=== PATIENT | female | born 1930 | race Caucasian/White ===

== ENCOUNTER 2017-03-11 09:17 | Inpatient (IN) | payer BC, MEDICARE ==
--- NOTE | 2017-03-11 09:53 | ED PDOC ---
Arrival/HPI - General Historian: Patient - History of Present Illness Time/Duration: Prior to Arrival Context: Home - General Chief Complaint: Dizziness/Lightheaded Time Seen by Provider: 03/11/17 09:25 - History of Present Illness Narrative History of Present Illness (Text): 03/11/17 09:48 This 87 yo female with pmh HTN, presents to this ED c/o dizziness, and decreased appetite x 4 days. Patient stated she tripped and fell down. Patient does not how she tripped. Patient denies pain at this time. Patient is connected with a NC, with pulse ox. 95%. Denies sob, cp, abdominal pain, n/v , fever, chills, head injury, diplopia, dysarthria, or abnormal gait. Patient lives alone in apartment. NAVID Bosch (Boone Yee) Past Medical History - Provider Review Nursing Documentation Reviewed: Yes - Reproductive Menopause: Yes - Cardiac Hx Cardiac Disorders: Yes Hx Hypertension: Yes - Pulmonary Hx Respiratory Disorders: No - Neurological Hx Neurological Disorder: No - HEENT Hx HEENT Disorder: Yes Other/Comment: ectropion - Renal Hx Renal Disorder: No - Endocrine/Metabolic Hx Endocrine Disorders: No Other/Comment: impaired fasting glucose - Hematological/Oncological Hx Blood Disorders: No - Integumentary Hx Dermatological Disorder: No - Musculoskeletal/Rheumatological Hx Musculoskeletal Disorders: No - Gastrointestinal Hx Gastrointestinal Disorders: No - Genitourinary/Gynecological Hx Genitourinary Disorders: No - Psychiatric Hx Psychophysiologic Disorder: No Hx Substance Use: No - Anesthesia Hx Anesthesia: No Family/Social History - Physician Review Nursing Documentation Reviewed: Yes Family/Social History: Other (non-contributory) Smoking Status: Never Smoked Hx Alcohol Use: No Hx Substance Use: No Allergies/Home Meds Allergies/Adverse Reactions: Allergies No Known Allergies Allergy (Verified 03/11/17 09:37) Home Medications: Home Meds Medication Instructions Recorded Confirmed Lisinopril/Hydrochlorothiazide 20 mg DAILY 03/11/17 03/11/17 [Lisinopril-Hctz 20-25 mg Tab] amLODIPine [Norvasc] 10 mg PO DAILY 03/11/17 03/11/17 Review of Systems - Review of Systems Constitutional: Normal. absent: Fatigue, Weight Change, Fevers Eyes: Normal ENT: Normal Respiratory: Normal. absent: SOB Cardiovascular: Normal. absent: Chest Pain, Palpitations Gastrointestinal: Appetite Changes. absent: Abdominal Pain, Nausea, Vomiting Genitourinary Female: Normal. absent: Dysuria, Frequency, Hematuria, Vaginal Bleeding, Vaginal Discharge Musculoskeletal: Normal. absent: Back Pain, Neck Pain Skin: Normal. absent: Rash, Pruritis Neurological: Dizziness. absent: Headache, Focal Weakness, Gait Changes, Speech Changes, Facial Droop, Disequilibrium, Seizure Endocrine: Normal Hemo/Lymphatic: Normal Psychiatric: Normal Physical Exam Temperature: Afebrile Blood Pressure: Normal Pulse: Regular Respiratory Rate: Normal Appearance: Positive for: Well-Appearing, Non-Toxic, Comfortable, Unkept Pain Distress: None Mental Status: Positive for: Alert and Oriented X 3 - Systems Exam Head: Present: Atraumatic, Normocephalic Pupils: Present: PERRL Extroacular Muscles: Present: EOMI Conjunctiva: Present: Other (ectropion b/l) Ears: Present: Normal, NORMAL TM, Normal Canal. No: Erythema, TM Bulging, Fluid , TM Perf Mouth: Present: Moist Mucous Membranes Pharnyx: Present: Normal. No: ERYTHEMA, EXUDATE, TONSILS ENLARGED Neck: Present: Normal Range of Motion, Trachea Midline. No: Meningeal Signs, MIDLINE TENDERNESS Respiratory/Chest: Present: Clear to Auscultation, Good Air Exchange, Respiratory Distress (mild). No: Accessory Muscle Use, Wheezes, Retracting, Rhonchi, Tachypneic Cardiovascular: Present: Regular Rate and Rhythm, Normal S1, S2. No: Murmurs Abdomen: Present: Normal Bowel Sounds. No: Tenderness, Distention, Peritoneal Signs, Rebound, Guarding Back: Present: Normal Inspection. No: CVA Tenderness Upper Extremity: Present: Normal Inspection. No: Cyanosis, Edema Lower Extremity: Present: Normal Inspection. No: Edema Neurological: Present: GCS=15, CN II-XII Intact, Speech Normal, Motor Func Grossly Intact, Normal Sensory Function, Normal Cerebellar Funct, Memory Normal Skin: Present: Warm, Dry, Normal Color. No: Rashes Psychiatric: Present: Alert, Oriented x 3, Normal Insight, Normal Concentration Vital Signs Temp Pulse Resp BP Pulse Ox 03/11/17 13:02 89 18 158/79 H 95 03/11/17 11:39 96 H 18 161/84 H 94 L 03/11/17 11:33 92 H 18 95 03/11/17 10:29 99.5 F 03/11/17 09:18 98 H 18 142/89 97 Medical Decision Making Re-evaluation Time: 11:35 Reassessment Condition: Re-examined, Improving,but remains with symptoms - Lab Interpretations I have reviewed the lab results: Yes Interpretation: Abnormal lab values - EKG Interpretation Interpreted by ED Physician: Yes (Sinus Rhythm with PAC @ 88 bpm. ) Type: 12 lead EKG Comparison: No previous EKG avail. ED Course and Treatment: 03/11/17 11:25 Code sepsis was called overhead 03/11/17 13:[address] Horne who is covering for Dr. Rose, regarding sepsis. He agrees with admission (Boone Yee) I was available for consultation during PA evaluation. The chart was reviewed by me, and I agree with disposition. The documented history was done by the physician topography technician. The documented physical exam was done by the physician topography technician. The documented procedures were done by the physician topography technician. (Seamus Mathew) - Lab Interpretations Lab Results: 03/11/17 11:06 03/11/17 11:06 Lab Results 03/11/17 13:55: pO2 39, VBG pH 7.32, VBG pCO2 52.0, VBG HCO3 26.8, VBG Total CO2 28.4 H, VBG O2 Sat (Calc) 73.9 H, VBG Base Excess -0.1 L, VBG Potassium 4.3 , Sodium 133.0, Chloride 98.0, Glucose 108 H, Lactate 2.5 H, FiO2 21.0, Venous Blood Potassium 4.3 03/11/17 11:06: Phosphorus 3.9, Magnesium 2.1 03/11/17 11:06: PT 11.0, INR 1.02, APTT 28.7 03/11/17 11:06: D-Dimer, Quantitative 4.80 H 03/11/17 11:06: Sodium 137, Chloride 95 L, Potassium 4.5, Carbon Dioxide 28, Anion Gap 19, BUN 21, Creatinine 0.9, Est GFR ( Amer) > 60, Est GFR (Non- Af Amer) 59, Random Glucose 112 H, Calcium 9.4, Total Bilirubin 0.9, AST 20, ALT 29, Alkaline Phosphatase 99, Lactate Dehydrogenase 773 H, Total Creatine Kinase 29 L, Troponin I 0.02, NT-Pro-B Natriuret Pep 443, Total Protein 6.8, Albumin 3.7, Globulin 3.0, Albumin/Globulin Ratio 1.2 03/11/17 11:06: pO2 29 L, VBG pH 7.34, VBG pCO2 54.0, VBG HCO3 29.1 H, VBG Total CO2 30.8 H, VBG O2 Sat (Calc) 59.3, VBG Base Excess 2.2 H, VBG Potassium 4.4, Sodium 133.0, Chloride 98.0, Glucose 120 H, Lactate 2.5 H, FiO2 21.0, Venous Blood Potassium 4.4 03/11/17 11:06: WBC 16.6 H, RBC 4.71, Hgb 13.2, Hct 40.3, MCV 85.6, MCH 28.0, MCHC 32.8, RDW 14.9 H, Plt Count 327, MPV 10.1, Gran % 61.8, Lymph % (Auto) 32.0 , [place] % (Auto) 6.0, Eos % (Auto) 0.1 L, Baso % (Auto) 0.1, Gran # 10.25 H, Lymph # 5.3 H, [place] # 1.0 H, Eos # 0.0, Baso # 0.02 03/11/17 10:42: Urine Color Yellow, Urine Appearance Clear, Urine pH 6.0, Ur Specific Kila 1.025, Urine Protein 30 H, Urine Glucose (UA) Negative, Urine Ketones 15 H, Urine Blood Moderate H, Urine Nitrate Negative, Urine Bilirubin Moderate H, Urine Urobilinogen 4.0 H, Ur Leukocyte Esterase Moderate H, Urine RBC 10 - 15, Urine WBC 5 - 10, Ur Epithelial Cells Many, Urine Bacteria Many, Hyaline Casts 2 - 5 - RAD Interpretation Narrative RAD Interpretations (Text): 03/11/17 11:37 Accession No. : [id number] Patient Name / ID : JULIANNE LUTHER / [id number] Exam Date : 03/11/2017 11:15:57 ( Approved ) Study Comment : Sex / Age : F / 87Y Creator : Edmundo Phillips MD Dictator : Edmundo Phillips MD Personal Care Aid : Aviation Electrical Technician : Edmundo Phillips MD Approver2 : Report Date : 03/11/2017 11:34:33 My Comment : PROCEDURE: CT HEAD WITHOUT CONTRAST. HISTORY: dizziness COMPARISON: None available. TECHNIQUE: Axial computed tomography images were obtained through the head/brain without intravenous contrast. Radiation dose: Total exam DLP = 790.51 mGy-cm. This CT exam was performed using one or more of the following dose reduction techniques: Automated exposure control, adjustment of the mA and/or kV according to patient size, and/or use of iterative reconstruction technique. FINDINGS: HEMORRHAGE: No acute parenchymal, subarachnoid nor extra-axial hemorrhage. BRAIN: Moderate to fairly significant diffuse/confluent chronic white matter ischemic changes are seen extending peripherally into the deep and subcortical white matter both cerebral hemispheres. 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 Note that the possibility of underlying acute infarct cannot be completely excluded. Clinical correlation recommended. VENTRICLES: No obstructive hydrocephalus. CALVARIUM: Unremarkable. PARANASAL SINUSES: Polypoid mucosal thickening both maxillary sinuses right greater than left. MASTOID AIR CELLS: Unremarkable as visualized. No inflammatory changes. OTHER FINDINGS: None. IMPRESSION: No acute intracranial hemorrhage. Moderate to significant chronic white matter and basal nuclei ischemic changes. Moderate volume loss. 03/11/17 13:57 Accession No. : [id number] Patient Name / ID : JULIANNE LUTHER / [id number] Exam Date : 03/11/2017 12:43:38 ( Approved ) Study Comment : Sex / Age : F / 87Y Creator : Rodríguez Bernal MD Dictator : Rodríguez Bernal MD Personal Care Aid : Aviation Electrical Technician : Rodríguez Bernal MD Approver2 : Report Date : 03/11/2017 13:21:51 My Comment : PROCEDURE: CT Chest with contrast (Pulmonary Angiogram) HISTORY: dyspnea / elevated Ddimer COMPARISON: None available. TECHNIQUE: Axial computed tomography images were obtained of the chest in the pulmonary arterial phase of enhancement. Coronal and sagittal reformatted images were created and reviewed. Intravenous contrast dose: Omnipaque 300, 150 cc Radiation dose: Total exam DLP = 571.65 mGy-cm. This CT exam was performed using one or more of the following dose reduction techniques: Automated exposure control, adjustment of the mA and/or kV according to patient size, and/or use of iterative reconstruction technique. FINDINGS: PULMONARY ARTERIES: No definite pulmonary embolus is appreciated in the primary and secondary branches with tertiary tree branches obscured by respiratory motion artifact and dilution of iodinated contrast material. AORTA: No acute findings. No thoracic aortic aneurysm. The main pulmonary appears normal caliber. LUNGS: Restrained motion degrades quality of the evaluation of the lungs however limited compression atelectasis is identified at the bilateral lower lobes at the dependent portion, right greater than left. No definitive pulmonary mass or nodule. The right hemidiaphragm is elevated. PLEURAL SPACES: There is a mild right pleural effusion with all minimal left pleural effusion identified. Nodular pleural thickening is suspicious for mass is in the right lower lobe pleura and possibly at the left side as well. There is a mild pericardial effusion. HEART: Cardiac size appears upper limits of normal. No definite pulmonary vascular derangement. LYMPH NODES: Gross mediastinal lymphadenopathy is appreciated. Confluent lymphadenopathy is appreciated at the upper anterior to middle mediastinum including masslike density comprising the space measuring 11.6 x 7.6 cm. This confluent metastatic or primary lesion to encases the distal superior vena cava and abuts the greater vessels. Moderate lymphadenopathy seen in the left pectoralis and axillary regions with mass is suspected in the left breast as well. BONES, CHEST WALL: Motion artifacts limit the evaluation. Multilevel thoracic spondylosis identified. 6.2 x 3 1 cm mass in the right 5th intercostal space medially. Moderate lymphadenopathy seen in the left pectoralis and axillary regions with masses suspected in the left breast as well. OTHER FINDINGS: Two hepatic cysts identified with a few of solitary lucency near the dome too small to characterize. IMPRESSION: 1. No definite pulmonary embolus identified. Restrained motion and dilution of iodinated contrast material related to large volume of distribution in this patient limit distal pulmonary artery branch evaluation. 2. Extensive mediastinal lymphadenopathy is identified as well as moderate lymphadenopathy at the left pectoralis and axillary regions. Masses are seen in the left breast as well. Further clinical correlation is advised. 3. Limited bilateral pleural effusions greater the right than left with pleural mass is suggested at the right lower lobe posteriorly and inferiorly as well as possible at the left pleural space. An anterior medial right chest wall masses seen measures 6.2 x 3.1 cm at the right 5th intercostal space 03/11/17 13:57 Accession No. : [id number] Patient Name / ID : JULIANNE LUTHER / [id number] Exam Date : 03/11/2017 10:04:15 ( Approved ) Study Comment : Sex / Age : F / 87Y Creator : Rodríguez Bernal MD Dictator : Rodríguez Bernal MD Personal Care Aid : Aviation Electrical Technician : Rodríguez Bernal MD Approver2 : Report Date : 03/11/2017 13:32:46 My Comment : HISTORY: dizziness COMPARISON: No prior. FINDINGS: LUNGS: Limited patchy density or bronchovascular overlap seen at the inferior right lung zone. Mediastinal widening is seen toward the right of the ascending thoracic aorta/aortic arch reflecting probable lymphadenopathy. Please see separate chest CT also performed 03/11/2017. PLEURA: Small pleural effusion is suggested. Right hemidiaphragm is elevated with no visible right pleural effusion appreciable this time. Right pleural effusion is demonstrated separate chest CT noted above. No pneumothorax bilaterally. CARDIOVASCULAR: Prominent cardiac silhouette is noted without pulmonary vascular derangement. OSSEOUS STRUCTURES: No significant abnormalities. VISUALIZED UPPER ABDOMEN: Normal. OTHER FINDINGS: None. IMPRESSION: 1. Prominent upper mediastinum with soft tissues suggested toward the right of the aortic arch suspicious for lymphadenopathy or other lesions. Please see separate chest CT 03/11/2017. 2. Limited patchy infiltrate question at the right base. 3. Small pleural effusion. Mild right pleural effusion seen in chest CT 2016 is not well visualized this exam however right emy-diaphragm appears elevated. (Boone Yee) Radiology Orders: 03/11/17 09:58 CHEST PORTABLE [RAD] Stat 03/11/17 10:00 HEAD W/O CONTRAST [CT] Stat 03/11/17 11:42 ANGIO CHEST PE PROTOCOL [CT] Stat - Medication Orders Current Medication Orders: Albuterol/Ipratropium (Duoneb 3 Mg/0.5 Mg (3 Ml) Ud) 3 ml IH Q4H PRN PRN Reason: Wheezing Discontinued Medications Sodium Chloride (Sodium Chloride 0.9%) 500 mls @ 999 mls/hr IV .Q31M STA Stop: 03/11/17 10:32 Last Admin: 03/11/17 10:35 Dose: 999 mls/hr eMAR Start Stop Document 03/11/17 10:35 SF (Rec: 03/11/17 10:36 SF [email or web address] Intravenous Solution Start Date 03/11/17 Start Time 10:36 End Date 03/11/17 End time 11:06 Total Infusion Time 30 Ceftriaxone Sodium (Rocephin 1 Gram Ivpb) 1 gm in 100 mls @ 200 mls/hr IVPB STAT STA PRN Reason: Protocol Stop: 03/11/17 11:57 Last Admin: 03/11/17 11:42 Dose: 200 mls/hr eMAR Start Stop Document 03/11/17 11:42 SF (Rec: 03/11/17 11:42 SF [email or web address] Intravenous Solution Start Date 03/11/17 Start Time 11:42 End Date 03/11/17 End time 12:12 Total Infusion Time 30 Sodium Chloride 1,900 ml/ IV (SUPPLIES) 1,900 mls @ 4,898.82 mls/hr IV ONCE ONE PRN Reason: 60 ML/KG/HR Stop: 03/11/17 11:32 Last Admin: 03/11/17 11:42 Dose: 4,898.82 mls/hr eMAR Start Stop Document 03/11/17 11:42 SF (Rec: 03/11/17 11:42 SF [email or web address] Intravenous Solution Start Date 03/11/17 Start Time 11:42 Azithromycin (Zithromax 500mg In Ns) 500 mg in 250 mls @ 167 mls/hr IVPB STAT STA PRN Reason: Protocol Stop: 03/11/17 13:54 Last Admin: 03/11/17 13:06 Dose: 167 mls/hr eMAR Start Stop Document 03/11/17 13:06 NH (Rec: 03/11/17 13:07 NH [id number]) Intravenous Solution Start Date 03/11/17 Start Time 13:07 End Date 03/11/17 End time 14:37 Total Infusion Time 90 Iohexol (Omnipaque 350 150 Ml) Confirm Administered Dose 150 ml .ROUTE .STK-MED ONE Stop: 03/11/17 11:50 Disposition/Present on Arrival - Present on Arrival Any Indicators Present on Arrival: No History of DVT/PE: No History of Uncontrolled Diabetes: No Urinary Catheter: No History of Decub. Ulcer: No History Surgical Site Infection Following: None - Disposition Have Diagnosis and Disposition been Completed?: Yes Disposition Time: 14:00 Patient Plan: Admission - Disposition Diagnosis: Mediastinal mass, Sepsis, Pneumonia Disposition: HOSPITALIZED Condition: GOOD
[2017-03-11] MEDS ORDERED: Sodium Chloride 0.9% 500 ML IV STA (10:02)
[2017-03-11 10:55] LABS: URINE BILIRUBIN MODERATE (NEGATIVE); URINE BLOOD MODERATE (NEGATIVE); URINE GLUCOSE (UA) NEGATIVE (NEGATIVE); URINE KETONE 15 mg/dL (NEGATIVE); URINE LEUKOCYTE ESTERASE MODERATE Leu/uL (NEGATIVE); URINE PROTEIN 30 mg/dL (<30 mg/dL)
[2017-03-11 10:56] LABS: URINE APPEARANCE CLEAR (CLEAR); URINE COLOR YELLOW (YELLOW)
[2017-03-11 11:01] LABS: URINE BACTERIA MANY (NEG); URINE EPITHELIAL CELLS MANY /hpf (0-5)
[2017-03-11 11:16] LABS: BASO # 0.02 K/mm3 (0.0-2.0); BASO % 0.1 % (0.0-3.0); EOS % 0.1 % (1.5-5.0); GRAN # 10.25 (1.4-6.5); GRAN % 61.8 % (50.0-68.0); HEMATOCRIT 40.3 % (36.0-48.0); LYMPH # 5.3 (1.2-3.4); MEAN CELL VOLUME 85.6 fl (80.0-105.0); MEAN CORPUSCULAR HGB CONC 32.8 g/dl (31.0-37.0); MEAN PLATELET VOLUME 10.1 fl (7.0-11.0); RED CELL DISTRIBUTION WIDTH 14.9 % (11.5-14.5); VENOUS BLOOD GAS BASE EXCESS 2.2 mmol/L (0.0-2.0); VENOUS BLOOD PH 7.34 (7.32-7.43); WHITE BLOOD COUNT 16.6 10^3/ul (4.5-11.0)
[2017-03-11 11:27] LABS: ALB/GLOB RATIO 1.2 (1.1-1.8); ALKALINE PHOSPHATASE 99 U/L (38-126); ALT/SGPT 29 U/L (7-56); AST/SGOT 20 U/L (14-36); BILIRUBIN,TOTAL 0.9 mg/dL (0.2-1.3); BLOOD UREA NITROGEN 21 mg/dL (7-21); CALCIUM 9.4 mg/dL (8.4-10.5); CARBON DIOXIDE 28 mmol/L (21-33); CHLORIDE 95 mmol/L (98-107); GFR AFRICAN-AMERICAN > 60; GLUCOSE,RANDOM 112 mg/dL (70-110); POTASSIUM 4.5 mmol/L (3.6-5.0); SODIUM 137 mmol/L (132-148); TOTAL PROTEIN 6.8 g/dL (5.8-8.3)
[2017-03-11] MEDS ORDERED: cefTRIAXone 1 gm 1 GM/100 ML BAG IVPB STA (11:28)
--- NOTE | 2017-03-11 11:36 | CT ---
PROCEDURE: CT HEAD WITHOUT CONTRAST. HISTORY: dizziness COMPARISON: None available. TECHNIQUE: Axial computed tomography images were obtained through the head/brain without intravenous contrast. Radiation dose: Total exam DLP = 790.51 mGy-cm. This CT exam was performed using one or more of the following dose reduction techniques: Automated exposure control, adjustment of the mA and/or kV according to patient size, and/or use of iterative reconstruction technique. FINDINGS: HEMORRHAGE: No acute parenchymal, subarachnoid nor extra-axial hemorrhage. BRAIN: Moderate to fairly significant diffuse/confluent chronic white matter ischemic changes are seen extending peripherally into the deep and subcortical white matter both cerebral hemispheres. 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 Note that the possibility of underlying acute infarct cannot be completely excluded. Clinical correlation recommended. VENTRICLES: No obstructive hydrocephalus. CALVARIUM: Unremarkable. PARANASAL SINUSES: Polypoid mucosal thickening both maxillary sinuses right greater than left. MASTOID AIR CELLS: Unremarkable as visualized. No inflammatory changes. OTHER FINDINGS: None. IMPRESSION: No acute intracranial hemorrhage. Moderate to significant chronic white matter and basal nuclei ischemic changes. Moderate volume loss.
[2017-03-11 11:37] LABS: TROPONIN I 0.02 ng/mL
[2017-03-11 11:58] LABS: INR 1.02 (0.93-1.08); PARTIAL THROMBOPLASTIN TIME 28.7 Seconds (23.7-30.8)
[2017-03-11 11:59] LABS: MAGNESIUM 2.1 mg/dL (1.7-2.2); PHOSPHOROUS 3.9 mg/dL (2.5-4.5)
[2017-03-11] MEDS ORDERED: Azithromycin 500MG/NS 250ml 500 MG/250 ML BAG IVPB STA (12:25)
--- NOTE | 2017-03-11 13:23 | CT ---
PROCEDURE: CT Chest with contrast (Pulmonary Angiogram) HISTORY: dyspnea / elevated Ddimer COMPARISON: None available. TECHNIQUE: Axial computed tomography images were obtained of the chest in the pulmonary arterial phase of enhancement. Coronal and sagittal reformatted images were created and reviewed. Intravenous contrast dose: Omnipaque 300, 150 cc Radiation dose: Total exam DLP = 571.65 mGy-cm. This CT exam was performed using one or more of the following dose reduction techniques: Automated exposure control, adjustment of the mA and/or kV according to patient size, and/or use of iterative reconstruction technique. FINDINGS: PULMONARY ARTERIES: No definite pulmonary embolus is appreciated in the primary and secondary branches with tertiary tree branches obscured by respiratory motion artifact and dilution of iodinated contrast material. AORTA: No acute findings. No thoracic aortic aneurysm. The main pulmonary appears normal caliber. LUNGS: Restrained motion degrades quality of the evaluation of the lungs however limited compression atelectasis is identified at the bilateral lower lobes at the dependent portion, right greater than left. No definitive pulmonary mass or nodule. The right hemidiaphragm is elevated. PLEURAL SPACES: There is a mild right pleural effusion with all minimal left pleural effusion identified. Nodular pleural thickening is suspicious for mass is in the right lower lobe pleura and possibly at the left side as well. There is a mild pericardial effusion. HEART: Cardiac size appears upper limits of normal. No definite pulmonary vascular derangement. LYMPH NODES: Gross mediastinal lymphadenopathy is appreciated. Confluent lymphadenopathy is appreciated at the upper anterior to middle mediastinum including masslike density comprising the space measuring 11.6 x 7.6 cm. This confluent metastatic or primary lesion to encases the distal superior vena cava and abuts the greater vessels. Moderate lymphadenopathy seen in the left pectoralis and axillary regions with mass is suspected in the left breast as well. BONES, CHEST WALL: Motion artifacts limit the evaluation. Multilevel thoracic spondylosis identified. 6.2 x 3 1 cm mass in the right 5th intercostal space medially. Moderate lymphadenopathy seen in the left pectoralis and axillary regions with masses suspected in the left breast as well. OTHER FINDINGS: Two hepatic cysts identified with a few of solitary lucency near the dome too small to characterize. IMPRESSION: 1. No definite pulmonary embolus identified. Restrained motion and dilution of iodinated contrast material related to large volume of distribution in this patient limit distal pulmonary artery branch evaluation. 2. Extensive mediastinal lymphadenopathy is identified as well as moderate lymphadenopathy at the left pectoralis and axillary regions. Masses are seen in the left breast as well. Further clinical correlation is advised. 3. Limited bilateral pleural effusions greater the right than left with pleural mass is suggested at the right lower lobe posteriorly and inferiorly as well as possible at the left pleural space. An anterior medial right chest wall masses seen measures 6.2 x 3.1 cm at the right 5th intercostal space
--- NOTE | 2017-03-11 13:34 | RAD ---
HISTORY: dizziness COMPARISON: No prior. FINDINGS: LUNGS: Limited patchy density or bronchovascular overlap seen at the inferior right lung zone. Mediastinal widening is seen toward the right of the ascending thoracic aorta/aortic arch reflecting probable lymphadenopathy. Please see separate chest CT also performed 03/11/2017. PLEURA: Small pleural effusion is suggested. Right hemidiaphragm is elevated with no visible right pleural effusion appreciable this time. Right pleural effusion is demonstrated separate chest CT noted above. No pneumothorax bilaterally. CARDIOVASCULAR: Prominent cardiac silhouette is noted without pulmonary vascular derangement. OSSEOUS STRUCTURES: No significant abnormalities. VISUALIZED UPPER ABDOMEN: Normal. OTHER FINDINGS: None. IMPRESSION: 1. Prominent upper mediastinum with soft tissues suggested toward the right of the aortic arch suspicious for lymphadenopathy or other lesions. Please see separate chest CT 03/11/2017. 2. Limited patchy infiltrate question at the right base. 3. Small pleural effusion. Mild right pleural effusion seen in chest CT 03/11/2017 is not well visualized this exam however right emy-diaphragm appears elevated.
--- NOTE | 2017-03-11 13:35 | CARD ---
APPROVED REPORT EKG Measurement Heart [id number] <Conclusion> Sinus rhythm with premature atrial complexes PRWP Possible Anterior infarct, age undetermined ST & T wave abnormality, consider lateral ischemia
[2017-03-11 14:02] LABS: VENOUS BLOOD GAS BASE EXCESS -0.1 mmol/L (0.0-2.0); VENOUS BLOOD PH 7.32 (7.32-7.43)
[2017-03-11] MEDS ORDERED: Albuterol-Ipratrop 3 mg / 0.5 (3 ml) UD IH PRN (14:03)
[2017-03-11] MEDS ORDERED: [UNRECOGNIZED DRUG - OTHER] PO SCH (16:00)
[2017-03-11] MEDS ORDERED: HYDROCHLOROTHIAZIDE PO SCH (16:00)
[2017-03-11] MEDS ORDERED: LISINOPRIL PO SCH (16:00)
--- NOTE | 2017-03-11 16:01 | PCM.SEPTIC ---
Sepsis Progress Note - Reassessment Type Date of Evaluation: 03/11/17 Time of Evaluation: 15:30 Reassessment Type: Non-invasive reassessment - Non Invasive Reassessment Were the most recent vital sign reviewed: Yes Vital Sign (Latest): Temp Pulse Resp BP Pulse Ox 98.4 F 90 18 170/81 H 95 03/11/17 15:19 03/11/17 15:19 03/11/17 15:19 03/11/17 15:19 03/11/17 15:19 Cardiovascular: Yes: Regular Rate, Rhythm. No: Chest Non Tender, Edema, JVD, Tachycardia Respiratory: Yes: Normal Breath Sounds. No: Decreased Breath Sounds, Accessory Muscle Use Capillary Refill: Normal (Less than 2 sec) Skin: Normal Color, Dry - Invasive Reassessment (complete 2 of 4) Was a Central Venous Pressure Measurement obtained within 6 Hours after the presentation of septic shock: No Was a central venous oxygen measurement obtained within 6 hours after the presentation of septic shock: No Was a bedside cardiovascular ultrasound performed within 6 hours after the presentation of septic shock: No Was a passive leg raise performed or was a fluid challenge performed within 6 hrs of the initial fluid bolus: No Passive Leg Raise Result: Not Applicable Fluid Challenge performed: No
[2017-03-12 07:47] LABS: HEMATOCRIT 38.1 % (36.0-48.0); MEAN CORPUSCULAR HEMOGLOBIN 28.7 pg (25.0-35.0); MEAN CORPUSCULAR HGB CONC 33.3 g/dl (31.0-37.0); RED CELL DISTRIBUTION WIDTH 15.2 % (11.5-14.5); WHITE BLOOD COUNT 17.5 10^3/ul (4.5-11.0)
[2017-03-12 07:57] LABS: ALB/GLOB RATIO 1.1 (1.1-1.8); ALKALINE PHOSPHATASE 100 U/L (38-126); ALT/SGPT 28 U/L (7-56); AST/SGOT 23 U/L (14-36); BILIRUBIN,TOTAL 0.8 mg/dL (0.2-1.3); BLOOD UREA NITROGEN 20 mg/dL (7-21); CALCIUM 9.1 mg/dL (8.4-10.5); CARBON DIOXIDE 23 mmol/L (21-33); CHLORIDE 99 mmol/L (95-110); GFR AFRICAN-AMERICAN > 60; GLUCOSE,RANDOM 106 mg/dL (70-110); POTASSIUM 4.2 mmol/L (3.6-5.0); SODIUM 137 mmol/L (132-148); TOTAL PROTEIN 6.6 g/dL (5.8-8.3)
--- NOTE | 2017-03-12 08:07 | CON ---
PULMONARY CONSULTATION DATE: 03/12/2017 REASON FOR CONSULTATION: Abnormal CAT scan. REFERRING PHYSICIAN: Sarwat Ann MD HISTORY OF PRESENT ILLNESS: History is obtained via extensive discussion with the night nurse. I have also reviewed the chart at length, and discussed the case with the patient at length. The patient is an 87-year-old female, with past medical history significant for hypertension, who presents to the hospital with progressive weakness, dizziness, and decreased appetite for the past 4 days. The patient did state to falling at home. She was thus admitted for additional evaluation. Again, I did discuss the case with the night nurse at length. There is no history of shortness of breath at rest, dyspnea on exertion, cough, or sputum production. There is also no history of chest pain, coughing up of blood, or chest pain - made worse with deep respirations. The patient did present to the emergency room with low grade fevers (99.5). No history of chills or infectious exposure. No history of night sweats, weight loss or appetite change prior to the above events. No history of leg or calf pains. No history of syncope or diaphoresis. No history of recent travel. REVIEW OF SYSTEMS: No history of nausea, vomiting or diarrhea. No acute urinary symptoms. Rest of the review of systems is negative. ALLERGIES: NO KNOWN ALLERGIES. SOCIAL HISTORY: Negative for tobacco and negative for alcohol. FAMILY HISTORY: No inheritable diseases. HOME MEDICATIONS: Include Norvasc and lisinopril. PHYSICAL EXAMINATION: VITAL SIGNS: The patient appears comfortable at rest. She is not short of breath. VITAL SIGNS: Temperature is 98.4, pulse 90, respirations 18, blood pressure 180/95. Oxygen saturation on nasal cannula is 95-97%. HEENT: Normocephalic and atraumatic. No JVD. CARDIOVASCULAR: Systolic ejection murmur at the lower left sternal border. No S3 gallop. LUNGS: Decreased breath sounds at the bases. No rhonchi. No wheezing. EXTREMITIES: No clubbing, cyanosis or edema. Calves are nontender to palpation. GI: Abdomen is soft, nontender and nondistended. Bowel sounds are positive. SKIN: No acute rash. NEUROLOGIC: Exam limited at the present time. PERTINENT LABORATORY DATA: CT scan of the chest was done as an angiogram protocol. There is no pulmonary embolism noted. There is extensive mediastinal lymphadenopathy noted, including lymphadenopathy at the left pectoralis and axillary regions. There is also a large mass noted in the anterior mediastinum. There are also small bilateral pleural effusions. CBC: White count 16.6, hemoglobin 13.2, hematocrit 40.3, platelets of 327. Complete metabolic profile: Chloride 95, glucose 112, LDH 773. Rest of the metabolic profiles within normal limits. Urinalysis: Urine leukocyte esterase-- moderate. Urine bacteria--many. IMPRESSION: 1. Mediastinal mass. 2. Progressive weakness, status post fall. 3. Hypertension. 4. Rule out urinary tract infection. PLAN: Again, I did discuss the case with the night nurse at length. Apparently, the patient presents to [facility] with a 4-day history of increasing dizziness, weakness and decreased appetite. As above, she did have a fall at home. She was thus admitted for additional evaluation. I did review the CAT scan of the chest - done as an angiogram protocol. As above, there is a large anterior mediastinal mass noted. There is also diffuse adenopathy and small bilateral pleural effusions present. I did discuss the CAT scan findings with the patient at length, but I am not sure if she understands fully. I will certainly discuss the CAT scan findings and options with Dr. Ann later this morning. Options at this point include: Simple observation - given her advanced age, OR proceeding with a CAT scan guided biopsy (via interventional radiology). Upon review of the laboratory data, a leukocytosis is noted. Urinalysis is also noted above. I will start the patient on intravenous Rocephin this morning. Additional repeat a.m. labs are pending. Again, I will discuss the above case with Dr. Ann at length this morning. Thank you very much for this pulmonary consultation. Vishal Jackson MD MTDShawna
--- NOTE | 2017-03-12 09:40 | CP.PCM.HP ---
<Marylin Serrano - Last Filed: 03/12/17 11:56> History of Present Illness - History of Present Illness History of Present Illness: PGY-2 H&P for Dr. Ann 87 yo female with PMH of HTN presents with 3 day history of decreased appetite and weakness. Patient is a poor historian. She states that she has not been eating over the past 3-4 days, however she was able to eat yesterday. She reports 1 episode of dizziness due to lack of food that resolved after she sitting and eating. She denies any falls however ED note states patient did fell after she tripped. Patient does not know if she has any changes in weight. Patient denies chest pain, fever, chills, n/v, d/c, abd pain, cough, sob. Patient lives alone in apartment. PMH: HTN PSH: denies Social hx: denies smoking, etoh, illicit drug use allergy: nkda fam hx: denies Present on Admission - Present on Admission Any Indicators Present on Admission: No Review of Systems - Constitutional Constitutional: Weakness. absent: Chills, Fever, Frequent Falls, Night Sweats - EENT Eyes: absent: Blurred Vision, Change in Vision Nose/Mouth/Throat: absent: Nasal Congestion, Nasal Discharge, Sore Throat - Cardiovascular Cardiovascular: absent: Chest Pain, Dyspnea, Irregular Heart Rhythm, Pedal Edema - Respiratory Respiratory: absent: Cough, Dyspnea, Hemoptysis - Gastrointestinal Gastrointestinal: absent: Abdominal Pain, Constipation, Diarrhea, Nausea, Vomiting - Genitourinary Genitourinary: absent: Difficulty Urinating, Dysuria, Hematuria - Musculoskeletal Musculoskeletal: absent: Abnormal Gait, Muscle Weakness, Myalgias, Numbness, Tingling - Integumentary Integumentary: absent: Pruritus, Rash, Skin Ulcer, Sores, Wounds - Neurological Neurological: Dizziness, Weakness. absent: Numbness, Focal Weakness, Headaches , Syncope, Tingling - Hematologic/Lymphatic Hematologic: absent: Easy Bleeding, Easy Bruising Past Patient History - Past Social History Smoking Status: Never Smoked - CARDIAC Hx Cardiac Disorders: Yes Hx Hypertension: Yes - PULMONARY Hx Respiratory Disorders: Yes Hx Bronchitis: Yes Hx Pneumonia: Yes - NEUROLOGICAL Hx Neurological Disorder: No - HEENT Hx HEENT Problems: Yes Other/Comment: ectropion - RENAL Hx Chronic Kidney Disease: No - ENDOCRINE/METABOLIC Hx Endocrine Disorders: No Other/Comment: impaired fasting glucose - HEMATOLOGICAL/ONCOLOGICAL Hx Blood Disorders: No - INTEGUMENTARY Hx Dermatological Problems: No - MUSCULOSKELETAL/RHEUMATOLOGICAL Hx Musculoskeletal Disorders: No Hx Arthritis: Yes Hx Falls: Yes - GASTROINTESTINAL Hx Gastrointestinal Disorders: No - GENITOURINARY/GYNECOLOGICAL Hx Genitourinary Disorders: No - PSYCHIATRIC Hx Psychophysiologic Disorder: No - SURGICAL HISTORY Hx Surgeries: No - ANESTHESIA Hx Anesthesia: No Meds Allergies/Adverse Reactions: Allergies Allergy/AdvReac Type Severity Reaction Status Date / Time No Known Allergies Allergy Verified 03/11/17 09:37 Physical Exam - Constitutional Appears: Well, No Acute Distress - Head Exam Head Exam: ATRAUMATIC, NORMAL INSPECTION, NORMOCEPHALIC - Eye Exam Eye Exam: EOMI, Normal appearance - ENT Exam ENT Exam: Mucous Membranes Moist - Respiratory Exam Respiratory Exam: Clear to Auscultation Bilateral, NORMAL BREATHING PATTERN. absent: Rales, Rhonchi, Wheezes, Respiratory Distress - Cardiovascular Exam Cardiovascular Exam: REGULAR RHYTHM, +S1, +S2. absent: Tachycardia, Diastolic murmur, Systolic Murmur - GI/Abdominal Exam GI & Abdominal Exam: Normal Bowel Sounds, Soft. absent: Distended, Firm, Tenderness - Extremities Exam Extremities exam: Positive for: normal inspection. Negative for: pedal edema, tenderness - Neurological Exam Neurological exam: Alert, Oriented x3 - Psychiatric Exam Psychiatric exam: Normal Affect, Normal Mood - Skin Skin Exam: Dry, Intact, Normal Color, Warm Results - Vital Signs Recent Vital Signs: Last Vital Signs Temp 98.9 F 03/12/17 08:19 Pulse 74 03/12/17 08:19 Resp 20 03/12/17 08:19 BP 145/75 03/12/17 08:19 Pulse Ox 94 L 03/12/17 08:19 - Labs Result Diagrams: 03/12/17 07:41 03/12/17 07:41 Labs: Laboratory Results - last 24 hr 03/12/17 03/12/17 07:41 07:41 WBC 17.5 H RBC 4.43 Hgb 12.7 Hct 38.1 MCV 86.0 MCH 28.7 MCHC 33.3 RDW 15.2 H Plt Count 312 MPV 10.0 Sodium 137 Potassium 4.2 Chloride 99 Carbon Dioxide 23 Anion Gap 19 BUN 20 Creatinine 0.7 Est GFR ( Amer) > 60 Est GFR (Non-Af Amer) > 60 Random Glucose 106 Calcium 9.1 Total Bilirubin 0.8 AST 23 ALT 28 Alkaline Phosphatase 100 Total Protein 6.6 Albumin 3.4 Globulin 3.2 Albumin/Globulin Ratio 1.1 Assessment & Plan - Assessment and Plan (Free Text) Assessment: 87 yo female with PMH of HTN presents with 3 day history of decreased appetite and weakness. Chest CT showed no definite pulmonary embolus, extensive mediastinal lymphadenopathy, as well as moderate lymphadenopathy at the left pectoralis and axillary regions. Limited bilateral pleural effusions greater the right than left with pleural mass is suggested at the right lower lobe posteriorly and interiorly as well as possible at the left pleural space. An anterior medial right chest wall masses seen measures 6.2 x 3.1 cm at the right 5th intercostal space. Plan: 1. sepsis - possible 2/2 PNE, questionable UTI - elevated WBC, mild elevation on temp on admission - UA positive - was given ceftriaxone and azithromycin in ED - started on ceftriaxone - blood and urine cultures pending - PT eval 2. lung mass with mediastinal lymphadenopathy - seen on CT chest - consider biopsy via IR, however give patient age, may be more beneficial for observation 3. HTN - started on home meds, norvasc and HCTD/lisinopril 4. bedbugs - found to have bedbugs, placed in isolation - currently denies any pruritus or bites - if symptoms arise consider antihistamines <Sarwat Ann S - Last Filed: 03/12/17 16:38> Results - Vital Signs Recent Vital Signs: Last Vital Signs Temp 98.9 F 03/12/17 08:19 Pulse 74 03/12/17 08:19 Resp 20 03/12/17 08:19 BP 144/80 03/12/17 10:26 Pulse Ox 94 L 03/12/17 08:19 - Labs Result Diagrams: 03/12/17 07:41 03/12/17 07:41 Labs: Laboratory Results - last 24 hr 03/12/17 03/12/17 07:41 07:41 WBC 17.5 H RBC 4.43 Hgb 12.7 Hct 38.1 MCV 86.0 MCH 28.7 MCHC 33.3 RDW 15.2 H Plt Count 312 MPV 10.0 Sodium 137 Potassium 4.2 Chloride 99 Carbon Dioxide 23 Anion Gap 19 BUN 20 Creatinine 0.7 Est GFR ( Amer) > 60 Est GFR (Non-Af Amer) > 60 Random Glucose 106 Calcium 9.1 Total Bilirubin 0.8 AST 23 ALT 28 Alkaline Phosphatase 100 Total Protein 6.6 Albumin 3.4 Globulin 3.2 Albumin/Globulin Ratio 1.1 Assessment & Plan - Assessment and Plan (Free Text) Plan: Pt seen and examined. Reviewed the note of the resident and I agree with it. Meds and labs reviewed. Tolerating diet. Spoke to Dr Jackson about Lung mass. Will need to speak to pt and family about terminal worker plans and options. Pt is going to be DNR/DNI with POLST to be signed. Appreciate palliative care consult.
[2017-03-12] MEDS ORDERED: cefTRIAXone 1 gm 100 ML IVPB SCH (10:00)
[2017-03-12] MEDS: cefTRIAXone 1 gm 1 GM/100 ML BAG IVPB SCH (10:26)
--- NOTE | 2017-03-12 12:12 | CP.PCM.CON ---
History of Present Illness - History of Present Illness History of Present Illness: Palliative consult requested by Dr Ray Ann Reason: advance care planning 87 year old female with history of hypertension who presented with dizziness, and appetite.She denies fever,chills,headaches, injury nausea and vomiting. She is a poor historian. She remembers tripping but states she was not injured. Head CT showed no acute findings, moderate to significant white matter and basal neuclei changes. CT of chest no pulmonary emboli, extensive mediastinal lymphadenopathy at the left pectoralis and axillary regions, limited bilateral pleural effusions, R>L with pleural mass in the right lower lobe and anterior medial right chest wall masses at 5t intercostal space.Labs: leukocytosis, Glucose 116, LDK 773, TCK 29. Urine positive for UTI. PMHx: HTN Social History: Non smoker,no alcohol or drug use. ,lives independently. Has a niece Sana Mcintyre who is her next of kin. Family History: Non contributory. Advance Care Planning: She does not have an Advance Directive. Review of Systems: As per HPI, otherwise negative. Past Patient History - Past Social History Smoking Status: Never Smoked - CARDIAC Hx Cardiac Disorders: Yes Hx Hypertension: Yes - PULMONARY Hx Respiratory Disorders: Yes Hx Bronchitis: Yes Hx Pneumonia: Yes - NEUROLOGICAL Hx Neurological Disorder: No - HEENT Hx HEENT Problems: Yes Other/Comment: ectropion - RENAL Hx Chronic Kidney Disease: No - ENDOCRINE/METABOLIC Hx Endocrine Disorders: No Other/Comment: impaired fasting glucose - HEMATOLOGICAL/ONCOLOGICAL Hx Blood Disorders: No - INTEGUMENTARY Hx Dermatological Problems: No - MUSCULOSKELETAL/RHEUMATOLOGICAL Hx Musculoskeletal Disorders: No Hx Arthritis: Yes Hx Falls: Yes - GASTROINTESTINAL Hx Gastrointestinal Disorders: No - GENITOURINARY/GYNECOLOGICAL Hx Genitourinary Disorders: No - PSYCHIATRIC Hx Psychophysiologic Disorder: No - SURGICAL HISTORY Hx Surgeries: No - ANESTHESIA Hx Anesthesia: No Meds Allergies/Adverse Reactions: Allergies Allergy/AdvReac Type Severity Reaction Status Date / Time No Known Allergies Allergy Verified 03/11/17 09:37 - Medications Medications: Current Medications Albuterol/Ipratropium (Duoneb 3 Mg/0.5 Mg (3 Ml) Ud) 3 ml IH Q4H PRN PRN Reason: Wheezing Amlodipine Besylate (Norvasc) 10 mg PO DAILY [facility] Last Admin: 03/12/17 10:26 Dose: 10 mg Hydrochlorothiazide (Hydrodiuril) 25 mg PO DAILY [facility] Last Admin: 03/12/17 10:26 Dose: 25 mg Ceftriaxone Sodium (Rocephin 1 Gram Ivpb) 1 gm in 100 mls @ 100 mls/hr IVPB DAILY [facility] PRN Reason: Protocol Last Admin: 03/12/17 10:26 Dose: 100 mls/hr Lisinopril (Zestril) 20 mg PO DAILY [facility] Last Admin: 03/12/17 10:26 Dose: 20 mg Physical Exam - Constitutional Appears: No Acute Distress - Head Exam Head Exam: NORMAL INSPECTION - Eye Exam Eye Exam: Normal appearance, PERRL - ENT Exam ENT Exam: Mucous Membranes Moist, Normal Oropharynx - Neck Exam Neck exam: Positive for: Normal Inspection - Respiratory Exam Respiratory Exam: Decreased Breath Sounds, NORMAL BREATHING PATTERN - Cardiovascular Exam Cardiovascular Exam: REGULAR RHYTHM, +S1, +S2 - GI/Abdominal Exam GI & Abdominal Exam: Normal Bowel Sounds, Soft - Extremities Exam Extremities exam: Positive for: normal inspection, pedal pulses present - Back Exam Back exam: NORMAL INSPECTION - Neurological Exam Neurological exam: Alert Additional comments: oriented to place and self - Skin Skin Exam: Dry, Pallor - Additional Findings Additional findings: Palliative performance scale rating 50% Results - Vital Signs Recent Vital Signs: Last Vital Signs Temp 98.9 F 03/12/17 08:19 Pulse 74 03/12/17 08:19 Resp 20 03/12/17 08:19 BP 144/80 03/12/17 10:26 Pulse Ox 94 L 03/12/17 08:19 - Labs Result Diagrams: 03/12/17 07:41 03/12/17 07:41 Labs: Laboratory Results - last 24 hr 03/12/17 03/12/17 07:41 07:41 WBC 17.5 H RBC 4.43 Hgb 12.7 Hct 38.1 MCV 86.0 MCH 28.7 MCHC 33.3 RDW 15.2 H Plt Count 312 MPV 10.0 Sodium 137 Potassium 4.2 Chloride 99 Carbon Dioxide 23 Anion Gap 19 BUN 20 Creatinine 0.7 Est GFR ( Amer) > 60 Est GFR (Non-Af Amer) > 60 Random Glucose 106 Calcium 9.1 Total Bilirubin 0.8 AST 23 ALT 28 Alkaline Phosphatase 100 Total Protein 6.6 Albumin 3.4 Globulin 3.2 Albumin/Globulin Ratio 1.1 Assessment & Plan - Assessment and Plan (Free Text) Assessment: 87 year old female with history of HTN who is admitted weakness, decreased appetite, UTI, pleural effusion and lung mass. The patient is poor historian,forgetful at times. She is somewhat anxious. She claims that she is able to take care of all her own needs at home. She reports feeling weak over the past few days. She states her appetite is not so good but can't say how long it has been this way or if she has lost any weight. She states she does not have an Advanced Directive. She is willing to complete a directive but wants her nieceSana to be present during our conversation. Sana Pedraza and I had al long discussion with patient regarding her resuscitation wishes. The patient does not want to be intubated nor gaming she want CPR. POLST directive explained,questions answered. Patient completed POLST :DNR/DNI, Miguelina Urias is named as her health care surrogate. A copy is placed in the chart Plan: Advance Care Planning Palliative support - Date & Time Date: 03/12/17 Time: 11:00
--- NOTE | 2017-03-13 09:44 | PN ---
DATE: 03/13/2017 PULMONARY NOTE SUBJECTIVE: The patient appears comfortable this morning. She is not short of breath at rest. OBJECTIVE: VITAL SIGNS: Temperature is 98.9, pulse this morning 80, respirations 18/20, blood pressure 144/80, and oxygen saturation on room air is 94%. HEENT: Normocephalic, atraumatic. NECK: No JVD. CARDIOVASCULAR: Systolic ejection murmur at the lower left sternal border. No S3 gallop. LUNGS: Decreased breath sounds at the base. No rhonchi. No wheezing. EXTREMITIES: No clubbing, cyanosis, or edema. Calves are nontender to palpation. GASTROINTESTINAL: Abdomen is soft, nontender and nondistended. Bowel sounds are positive. SKIN: No acute rash. NEUROLOGIC: Limited at the present time. IMPRESSION: 1. Mediastinal mass. 2. Progressive weakness, status post fall. 3. Hypertension. 4. Rule out urinary tract infection. PLAN: The patient appears comfortable this morning. She is not short of breath at rest. She does state to feeling better overall. The patient did get out of bed and walk a little bit yesterday. She also ate a little more yesterday. I did review the notes by Dr. Ann, and Sana Mccoy (palliative care). The patient is now a DNR/DNI status. As per our conversation yesterday, Dr. Ann did state that he was reaching out to the family in reference to the CT scan findings. I will reach out to Dr. Ann this morning for information on that discussion. I would continue the current antibiotic therapy for now. Temperatures have now fully resolved. There remains a mild leukocytosis. Clinical status of the patient is somewhat improved - compared to the initial presentation. However, the future status/prognosis for this elderly patient remains very guarded at best. Again, I will reach out to Dr. Ann this morning. Vishal Jackson MD [facility]ITAL[facility]awn[facility]
[2017-03-13] MEDS: cefTRIAXone 1 gm 1 GM/100 ML BAG IVPB SCH (09:45)
--- NOTE | 2017-03-13 10:10 | CP.PCM.PN ---
<Marylin Serrano - Last Filed: 03/13/17 10:07> Subjective - Date & Time of Evaluation Date of Evaluation: 03/13/17 Time of Evaluation: 10:07 - Subjective Subjective: PGY-[address] Ann Patient seen and examined at bedside. No acute distress. Patient states that she is feeling well. She denies chest pain, sob, nausea, vomiting, fever, chills. She states that her appetite has improved and she is eating. She states she still at times feels weak. Objective - Vital Signs/Intake and Output Vital Signs (last 24 hours): Temp Pulse Resp BP Pulse Ox 98.2 F 62 18 152/80 H 94 L 03/13/17 08:00 03/13/17 08:00 03/13/17 08:00 03/13/17 09:45 03/13/17 08:00 Intake and Output: 03/13/17 03/13/17 06:59 18:59 Intake Total 600 Output Total 300 Balance 300 - Medications Medications: Current Medications Albuterol/Ipratropium (Duoneb 3 Mg/0.5 Mg (3 Ml) Ud) 3 ml IH Q4H PRN PRN Reason: Wheezing Amlodipine Besylate (Norvasc) 10 mg PO DAILY [facility] Last Admin: 03/13/17 09:45 Dose: 10 mg Hydrochlorothiazide (Hydrodiuril) 25 mg PO DAILY [facility] Last Admin: 03/13/17 09:46 Dose: 25 mg Ceftriaxone Sodium (Rocephin 1 Gram Ivpb) 1 gm in 100 mls @ 100 mls/hr IVPB DAILY [facility] PRN Reason: Protocol Last Admin: 03/13/17 09:45 Dose: 100 mls/hr Lisinopril (Zestril) 20 mg PO DAILY [facility] Last Admin: 03/13/17 09:46 Dose: 20 mg - Labs Labs: 03/12/17 07:41 03/12/17 07:41 PT 11.0 Seconds (9.9-11.8) 03/11/17 11:06 INR 1.02 (0.93-1.08) 03/11/17 11:06 APTT 28.7 Seconds (23.7-30.8) 03/11/17 11:06 - Constitutional Appears: Well, No Acute Distress - Head Exam Head Exam: ATRAUMATIC, NORMAL INSPECTION, NORMOCEPHALIC - Eye Exam Eye Exam: EOMI, Normal appearance - ENT Exam ENT Exam: Mucous Membranes Moist - Respiratory Exam Respiratory Exam: Clear to Ausculation Bilateral, NORMAL BREATHING PATTERN. absent: Decreased Breath Sounds, Rales, Rhonchi, Wheezes, Respiratory Distress - Cardiovascular Exam Cardiovascular Exam: REGULAR RHYTHM, +S1, +S2. absent: Tachycardia, Murmur - GI/Abdominal Exam GI & Abdominal Exam: Soft, Normal Bowel Sounds. absent: Distended, Firm, Guarding, Tenderness - Extremities Exam Extremities Exam: Normal Inspection. absent: Pedal Edema, Tenderness - Neurological Exam Neurological Exam: Alert, Awake, Oriented x3 - Skin Skin Exam: Dry, Intact, Normal Color, Warm Assessment and Plan - Assessment and Plan (Free Text) Assessment: 87 yo female with PMH of HTN presents with 3 day history of decreased appetite and weakness. Chest CT showed no definite pulmonary embolus, extensive mediastinal lymphadenopathy, as well as moderate lymphadenopathy at the left pectoralis and axillary regions. Limited bilateral pleural effusions greater the right than left with pleural mass is suggested at the right lower lobe posteriorly and interiorly as well as possible at the left pleural space. An anterior medial right chest wall masses seen measures 6.2 x 3.1 cm at the right 5th intercostal space. Patient made DNR/DNI Plan: 1. sepsis - possible 2/2 PNE, questionable UTI - elevated WBC, mild elevation on temp on admission - UA positive, urine cultures negative - blood cultures negative after 24 hours - was given ceftriaxone and azithromycin in ED - started on ceftriaxone - PT eval 2. lung mass with mediastinal lymphadenopathy - seen on CT chest - consider biopsy via IR, however give patient age, may be more beneficial for observation - patient made DNR/DNI, palliative care nurse consulted 3. HTN - started on home meds, norvasc and HCTD/lisinopril 4. bedbugs - found to have bedbugs, placed in isolation - currently denies any pruritus or bites - if symptoms arise consider antihistamines - will d/c isolation if no witnessed <Sarwat Ann - Last Filed: 03/13/17 20:46> Objective - Vital Signs/Intake and Output Vital Signs (last 24 hours): Temp Pulse Resp BP Pulse Ox 97.6 F 85 20 152/80 H 97 09/27/17 18:58 03/13/17 18:58 03/13/17 18:58 03/13/17 09:45 03/13/17 18:58 Intake and Output: 03/13/17 03/14/17 18:59 06:59 Intake Total 480 Balance 480 - Medications Medications: Current Medications Albuterol/Ipratropium (Duoneb 3 Mg/0.5 Mg (3 Ml) Ud) 3 ml IH Q4H PRN PRN Reason: Wheezing Amlodipine Besylate (Norvasc) 10 mg PO DAILY [facility] Last Admin: 03/13/17 09:45 Dose: 10 mg Hydrochlorothiazide (Hydrodiuril) 25 mg PO DAILY [facility] Last Admin: 03/13/17 09:46 Dose: 25 mg Ceftriaxone Sodium (Rocephin 1 Gram Ivpb) 1 gm in 100 mls @ 100 mls/hr IVPB DAILY [facility] PRN Reason: Protocol Last Admin: 03/13/17 09:45 Dose: 100 mls/hr Lisinopril (Zestril) 20 mg PO DAILY [facility] Last Admin: 03/13/17 09:46 Dose: 20 mg - Labs Labs: 03/12/17 07:41 03/12/17 07:41 PT 11.0 Seconds (9.9-11.8) 03/11/17 11:06 INR 1.02 (0.93-1.08) 03/11/17 11:06 APTT 28.7 Seconds (23.7-30.8) 03/11/17 11:06 Assessment and Plan - Assessment and Plan (Free Text) Plan: Pt seen and examined. Above note of medical technician reviewed and agree. Labs and medications reviewed. Spoke to pt and niece about mass. They are not interested in getting biopsy. Pt with elevated WCC and neg UCx and BCx. May need to evaluate for other causes of elevated WCC. Will see if she can go to TCU.
[2017-03-14 07:12] LABS: BASO # 0.02 K/mm3 (0.0-2.0); BASO % 0.1 % (0.0-3.0); EOS # 0.1 (0.0-0.7); EOS % 0.5 % (1.5-5.0); GRAN # 11.35 (1.4-6.5); GRAN % 60.6 % (50.0-68.0); HEMATOCRIT 37.2 % (36.0-48.0); LYMPH # 5.7 (1.2-3.4); LYMPH % 30.5 % (22.0-35.0); MEAN CELL VOLUME 85.1 fl (80.0-105.0); MEAN CORPUSCULAR HEMOGLOBIN 27.9 pg (25.0-35.0); MEAN CORPUSCULAR HGB CONC 32.8 g/dl (31.0-37.0); MEAN PLATELET VOLUME 10.2 fl (7.0-11.0); MONO # 1.6 (0.1-0.6); MONO % 8.3 % (1.0-6.0); RED CELL DISTRIBUTION WIDTH 15.1 % (11.5-14.5); WHITE BLOOD COUNT 18.7 10^3/ul (4.5-11.0)
[2017-03-14 07:28] LABS: ALB/GLOB RATIO 1.1 (1.1-1.8); ALKALINE PHOSPHATASE 91 U/L (38-126); ALT/SGPT 31 U/L (7-56); AST/SGOT 30 U/L (14-36); BILIRUBIN,TOTAL 0.7 mg/dL (0.2-1.3); BLOOD UREA NITROGEN 28 mg/dL (7-21); CALCIUM 8.6 mg/dL (8.4-10.5); CARBON DIOXIDE 28 mmol/L (21-33); CHLORIDE 94 mmol/L (98-107); GFR AFRICAN-AMERICAN > 60; GLUCOSE,RANDOM 111 mg/dL (70-110); POTASSIUM 4.3 mmol/L (3.6-5.0); SODIUM 133 mmol/L (132-148); TOTAL PROTEIN 6.3 g/dL (5.8-8.3)
--- NOTE | 2017-03-14 09:01 | CP.PCM.PN ---
<Marylin Serrano - Last Filed: 03/14/17 11:54> Subjective - Date & Time of Evaluation Date of Evaluation: 03/14/17 Time of Evaluation: 08:59 - Subjective Subjective: PGY-[address] Ann Patient seen and examined at bedside. No acute distress. Patient is feeling well , but continues to feel weak in her legs, she wish to continue physical therapy. She denies chest pain, dizziness, fever, chill, abd pain, n/v/d/c. Her appetite has improved and she is tolerating diet. Objective - Vital Signs/Intake and Output Vital Signs (last 24 hours): Temp Pulse Resp BP Pulse Ox 97.3 F L 81 24 152/80 H 96 03/14/17 08:36 03/14/17 08:36 03/14/17 08:36 03/13/17 09:45 03/14/17 08:36 Intake and Output: 03/14/17 03/14/17 06:59 18:59 Intake Total 660 Output Total 600 Balance 60 - Medications Medications: Current Medications Albuterol/Ipratropium (Duoneb 3 Mg/0.5 Mg (3 Ml) Ud) 3 ml IH Q4H PRN PRN Reason: Wheezing Amlodipine Besylate (Norvasc) 10 mg PO DAILY [facility] Last Admin: 03/13/17 09:45 Dose: 10 mg Hydrochlorothiazide (Hydrodiuril) 25 mg PO DAILY [facility] Last Admin: 03/13/17 09:46 Dose: 25 mg Ceftriaxone Sodium (Rocephin 1 Gram Ivpb) 1 gm in 100 mls @ 100 mls/hr IVPB DAILY [facility] PRN Reason: Protocol Last Admin: 03/13/17 09:45 Dose: 100 mls/hr Lisinopril (Zestril) 20 mg PO DAILY [facility] Last Admin: 03/13/17 09:46 Dose: 20 mg - Labs Labs: 03/14/17 06:50 03/14/17 06:50 PT 11.0 Seconds (9.9-11.8) 03/11/17 11:06 INR 1.02 (0.93-1.08) 03/11/17 11:06 APTT 28.7 Seconds (23.7-30.8) 03/11/17 11:06 - Constitutional Appears: Well, No Acute Distress - Head Exam Head Exam: ATRAUMATIC, NORMAL INSPECTION, NORMOCEPHALIC - Eye Exam Eye Exam: EOMI, Normal appearance - ENT Exam ENT Exam: Mucous Membranes Moist - Respiratory Exam Respiratory Exam: Clear to Ausculation Bilateral, NORMAL BREATHING PATTERN. absent: Decreased Breath Sounds, Rales, Rhonchi, Wheezes, Respiratory Distress - Cardiovascular Exam Cardiovascular Exam: REGULAR RHYTHM, +S1, +S2. absent: Tachycardia, Murmur - GI/Abdominal Exam GI & Abdominal Exam: Soft, Normal Bowel Sounds. absent: Distended, Firm, Tenderness - Extremities Exam Extremities Exam: Normal Inspection. absent: Pedal Edema, Tenderness - Neurological Exam Neurological Exam: Alert, Awake, Oriented x3 - Skin Skin Exam: Dry, Intact, Normal Color, Warm Assessment and Plan - Assessment and Plan (Free Text) Assessment: 87 yo female with PMH of HTN presents with 3 day history of decreased appetite and weakness. Chest CT showed no definite pulmonary embolus, extensive mediastinal lymphadenopathy, as well as moderate lymphadenopathy at the left pectoralis and axillary regions. Limited bilateral pleural effusions greater the right than left with pleural mass is suggested at the right lower lobe posteriorly and interiorly as well as possible at the left pleural space. An anterior medial right chest wall masses seen measures 6.2 x 3.1 cm at the right 5th intercostal space. Patient made DNR/DNI Plan: 1. sepsis - with elevated WBC - elevated WBC, mild elevation on temp on admission - UA positive, urine cultures negative - blood cultures negative after 24 hours - was given ceftriaxone and azithromycin in ED - started on ceftriaxone - suraj need to evaluate for other causes of leukocytosis - PT eval- recommended [facility]/TCU - will transfer to TCU 2. lung mass with mediastinal lymphadenopathy - seen on CT chest - consider biopsy via IR, however give patient age, may be more beneficial for observation - patient made DNR/DNI, palliative care nurse consulted - patient and family does not want biopsy at this time 3. HTN - started on home meds, norvasc and HCTD/lisinopril 4. bedbugs - found to have bedbugs, placed in isolation - currently denies any pruritus or bites - if symptoms arise consider antihistamines - isolation discontinued <Sarwat Ann - Last Filed: 03/14/17 21:28> Objective - Vital Signs/Intake and Output Vital Signs (last 24 hours): Temp Pulse Resp BP Pulse Ox 97 F L 82 20 145/67 98 03/14/17 16:11 03/14/17 16:11 03/14/17 16:11 03/14/17 11:22 03/14/17 16:11 Intake and Output: 03/14/17 03/15/17 18:59 06:59 Intake Total 480 Balance 480 - Labs Labs: 03/14/17 06:50 03/14/17 06:50 PT 11.0 Seconds (9.9-11.8) 03/11/17 11:06 INR 1.02 (0.93-1.08) 03/11/17 11:06 APTT 28.7 Seconds (23.7-30.8) 03/11/17 11:06 Assessment and Plan - Assessment and Plan (Free Text) Plan: Pt seen and examined. Agree with above note of medical chemist. Meds reviewed. Pt goind to TCU today for rehab.
[2017-03-14] MEDS: cefTRIAXone 1 gm 1 GM/100 ML BAG IVPB SCH (10:54)
[2017-03-14 11:24] VITALS: BP 145/67
[2017-03-14 11:31] LABS: PH,URINE 5.5 (4.7-8.0); URINE APPEARANCE SL CLOUDY (CLEAR); URINE BILIRUBIN NEGATIVE (NEGATIVE); URINE BLOOD MODERATE (NEGATIVE); URINE COLOR YELLOW (YELLOW); URINE GLUCOSE (UA) NEGATIVE (NEGATIVE); URINE KETONE NEGATIVE (NEGATIVE); URINE LEUKOCYTE ESTERASE NEGATIVE Leu/uL (NEGATIVE); URINE PROTEIN NEGATIVE mg/dL (<30 mg/dL)
[2017-03-14 11:40] LABS: URINE WBC 0 - 2 /hpf (0-6)
[2017-03-14 11:41] LABS: URINE BACTERIA TRACE (NEG)
--- NOTE | 2017-03-14 13:10 | PN ---
SUBJECTIVE: The patient appears comfortable this morning. She is not short of breath at rest. PHYSICAL EXAMINATION: VITALS SIGNS: Temperature is 97.6, pulse 85, respirations 18-20, blood pressure 152/80. Oxygen saturation on nasal cannula is 97%. HEENT: Normocephalic and atraumatic. NECK: No JVD. CARDIOVASCULAR: Systolic ejection murmur at the lower left sternal border. No S3 gallop. LUNGS: Decreased breath sounds at the bases. No rhonchi. No wheezing. EXTREMITIES: No clubbing, cyanosis or edema. Calves are nontender to palpation. GASTROINTESTINAL: Abdomen is soft, nontender and nondistended. Bowel sounds are positive. SKIN: No acute rash. NEUROLOGIC: Limited at the present time. IMPRESSION: 1. Mediastinal mass. 2. Progressive weakness, status post fall. 3. Hypertension. 4. Persistent leukocytosis. PLAN: The patient appears comfortable this morning. She is not short of breath at rest. She does state to feeling much better overall. She also states to feeling a little stronger on her feet. I did review the note by the medical lab technician (for Dr. Ann). Apparently, the patient and niece are not interested in going for a biopsy(for the mediastinal mass). Blood culture and urine cultures are so far negative. I will continue the current antibiotic therapy for now. Repeat a.m. labs are pending. Clinical status of the patient is improved - but remains very guarded overall. I will discuss the above with Dr. Ann. Vishal Jackson MD MTDShawna
--- NOTE | 2017-03-14 14:25 | CP.PCM.CON ---
History of Present Illness - History of Present Illness History of Present Illness: 87 year old female with PMH of HTN came in to [facility] because of a 3 days history of generalized weakness and anorexia. Work up is currently being done, and CT of the chest revealed extensive mediastinal lymphadenopathy and right lower lobe lung mass as well as left breast mass. She was also found to have persistent leukocytosis and positive leukocyte esterase on urinalysis but negative urine cx. Infectious diseases consult is requested to further evaluate and manage. Currently she denies fever or chills, no nausea or vomiting , no dysuria, no diarrhea, no abdominal pain, no chest pain, no SOB, no cough or rhinorrhea, no headache or dizziness. She wants to walk around the hospital corridors and is frustrated that she is not being helped for this. Review of Systems - Review of Systems All systems: reviewed and no additional remarkable complaints except (as per HPI ) Past Patient History - Past Social History Smoking Status: Never Smoked - CARDIAC Hx Cardiac Disorders: Yes Hx Hypertension: Yes - PULMONARY Hx Respiratory Disorders: Yes Hx Bronchitis: Yes Hx Pneumonia: Yes - NEUROLOGICAL Hx Neurological Disorder: No - HEENT Hx HEENT Problems: Yes Other/Comment: ectropion - RENAL Hx Chronic Kidney Disease: No - ENDOCRINE/METABOLIC Hx Endocrine Disorders: No Other/Comment: impaired fasting glucose - HEMATOLOGICAL/ONCOLOGICAL Hx Blood Disorders: No - INTEGUMENTARY Hx Dermatological Problems: No - MUSCULOSKELETAL/RHEUMATOLOGICAL Hx Arthritis: Yes - GASTROINTESTINAL Hx Gastrointestinal Disorders: No - GENITOURINARY/GYNECOLOGICAL Hx Genitourinary Disorders: No - PSYCHIATRIC Hx Psychophysiologic Disorder: No - SURGICAL HISTORY Hx Surgeries: No - ANESTHESIA Hx Anesthesia: No Meds Allergies/Adverse Reactions: Allergies Allergy/AdvReac Type Severity Reaction Status Date / Time No Known Allergies Allergy Verified 03/11/17 09:37 - Medications Medications: Current Medications Albuterol/Ipratropium (Duoneb 3 Mg/0.5 Mg (3 Ml) Ud) 3 ml IH Q4H PRN PRN Reason: Wheezing Amlodipine Besylate (Norvasc) 10 mg PO DAILY [facility] Last Admin: 03/13/17 09:45 Dose: 10 mg Hydrochlorothiazide (Hydrodiuril) 25 mg PO DAILY [facility] Last Admin: 03/13/17 09:46 Dose: 25 mg Ceftriaxone Sodium (Rocephin 1 Gram Ivpb) 1 gm in 100 mls @ 100 mls/hr IVPB DAILY [facility] PRN Reason: Protocol Last Admin: 03/13/17 09:45 Dose: 100 mls/hr Lisinopril (Zestril) 20 mg PO DAILY [facility] Last Admin: 03/13/17 09:46 Dose: 20 mg Physical Exam - Constitutional Appears: Non-toxic, Chronically Ill - Head Exam Head Exam: NORMAL INSPECTION - ENT Exam ENT Exam: Mucous Membranes Moist - Neck Exam Neck exam: Negative for: Meningismus - Respiratory Exam Respiratory Exam: Decreased Breath Sounds - Cardiovascular Exam Cardiovascular Exam: +S1, +S2 - GI/Abdominal Exam GI & Abdominal Exam: Soft. absent: Tenderness Results - Vital Signs Recent Vital Signs: Last Vital Signs Temp 97.3 F L 03/14/17 08:36 Pulse 81 03/14/17 08:36 Resp 24 03/14/17 08:36 BP 152/80 H 03/13/17 09:45 Pulse Ox 96 03/14/17 08:36 - Labs Result Diagrams: 03/14/17 06:50 03/14/17 06:50 Labs: Laboratory Results - last 24 hr 03/14/17 03/14/17 06:50 06:50 WBC 18.7 H RBC 4.37 Hgb 12.2 Hct 37.2 MCV 85.1 MCH 27.9 MCHC 32.8 RDW 15.1 H Plt Count 291 MPV 10.2 Gran % 60.6 Lymph % (Auto) 30.5 [place] % (Auto) 8.3 H Eos % (Auto) 0.5 L Baso % (Auto) 0.1 Gran # 11.35 H Lymph # 5.7 H [place] # 1.6 H Eos # 0.1 Baso # 0.02 Sodium 133 Potassium 4.3 Chloride 94 L Carbon Dioxide 28 Anion Gap 15 BUN 28 H Creatinine 0.8 Est GFR ( Amer) > 60 Est GFR (Non-Af Amer) > 60 Random Glucose 111 H Calcium 8.6 Total Bilirubin 0.7 AST 30 ALT 31 Alkaline Phosphatase 91 Total Protein 6.3 Albumin 3.3 Globulin 3.0 Albumin/Globulin Ratio 1.1 Assessment & Plan - Assessment and Plan (Free Text) Plan: Assessment Systemic Inflammatory Response Syndrome, with leukocytosis probably related to probable malignancy with right lower lobe lung mass, left breast mass and extensive mediastinal lymphadenopathy HTN Plan Reviewed initial septic work up - urinalysis showed leukocyte esterase but negative urine cx, making UTI unlikely (and patient does not currently have symptoms); blood cx are negative will repeat blood, urine cx reviewed CT chest follow up flow cytometry will need further Heme/Onc work up will monitor clinically
[2017-03-14 18:12] VITALS: PULSE 82; RESP 20; TEMP 97; O2SAT 98
--- NOTE | 2017-03-18 07:41 | PQF GENQUE ---
This form is a permanent part of the medical record Dr. Ann, Clarification of your documentation is requested to better reflect the severity of illness and intensity of treatment of your patient. Indicators present : Patient was diagnosed with sepsis. The bone marrow/ peripheral bld flow/cytometry findings are consistent with chronic lymphocytic leukemia. Please indicate if you agree with these findings. Thank you. No sepsis. Pt had elevated WCC due to CLL. [] Specify: [] [] Specify: [] [] Specify: [] [] Specify: [] Location in the medical record that reflects the above clinical findings: [] Treatment Provided: [] PHYSICIAN'S RESPONSE Based on your medical judgment of the clinical indicators outlined above please clarify the following: [] Practitioner response [] If unable to determine, please check the box, sign and date. Present On Admission (POA) Indicator: [] Present at the time of admission [] Not present at the time of admission [] Clinically Undetermined In responding to this query, please exercise your independent professional judgment. The fact that a question is asked does not imply that any particular answer is desired or expected. Thank you for your clarification on this documentation. If you have any questions please call:[ ] * Thank you, [ ]SHAYAN K[employer]ql server developer INES[place]
== END 2017-03-14 18:44 | DRG 841 ==
LOC: ED 09:17 → ERH 14:01 → 5RNO 16:25 → 5RSO 17:38
PROVIDERS: ADMIT Internal Medicine Nephrology; ATTEND Internal Medicine Nephrology
DX: C91.10 Chronic lymphocytic leukemia of B-cell type not having achieved remission (principal); R65.10 Systemic inflammatory response syndrome (SIRS) of non-infectious origin without acute organ dysfunction; J90 Pleural effusion, not elsewhere classified; N39.0 Urinary tract infection, site not specified; I10 Essential (primary) hypertension; Z66 Do not resuscitate; R59.0 Localized enlarged lymph nodes; R22.2 Localized swelling, mass and lump, trunk

== ENCOUNTER 2017-03-14 18:32 | Inpatient (IN) | payer MEDICARE ==
[2017-03-14 19:03] VITALS: BMI 26.4
[2017-03-14] MEDS ORDERED: Albuterol-Ipratrop 3 mg / 0.5 (3 ml) UD IH PRN (19:11)
[2017-03-15] MEDS ORDERED: Levalbuterol 0.63 MG/3 ML Inhal Soln UD IH PRN (07:03)
[2017-03-15] MEDS: Levalbuterol 0.63 MG/3 ML Inhal Soln UD IH SCH ×3 (07:22→20:33)
--- NOTE | 2017-03-15 08:39 | PN ---
DATE: 03/15/2017 SUBJECTIVE: The patient was admitted to the transitional care unit for rehab. She was initially on the hospital side. The patient's initial H and P has been reviewed and I agree with. She is here on the transitional care unit for physical therapy. PHYSICAL EXAMINATION: VITAL SIGNS: Temperature is 97.8, pulse of 86, blood pressure is 149/78, and respirations of 17. GENERAL: The patient is lying in bed, flat, comfortable. HEENT: No oral lesion. Anicteric sclerae. Moist mucosa. NECK: No JVD, adenopathy, or thyromegaly. CARDIOVASCULAR: S1 and S2, regular. No murmurs, rubs, or gallops. LUNGS: Clear to auscultation bilaterally. No wheeze, rales, or rhonchi. ABDOMEN: Bowel sounds are positive, soft, nontender and nondistended. EXTREMITIES: no cyanosis, clubbing or edema. ASSESSMENT: 1. Leukocytosis. 2. Left-sided nodular mass. 3. A 6.2 x 3.1 mass in the right fifth intercostal space. 4. Left breast mass. 5. Mediastinal lymphadenopathy. 6. Hypertension. 7. History of bed bugs. PLAN: The patient is currently comfortable. She has had blood cultures and urine cultures, which were negative. She has not had any fevers. She did have an elevated white count. A flow cytometry has been ordered. The patient is on hydrochlorothiazide, amlodipine, and lisinopril for hypertension. She is on nebulizer treatment as needed. I did speak to Dr. Jackson yesterday as well as the patient's needs, did not wish to undergo further evaluation for the masses. Biopsy will not be done. The patient and the family agrees and understands that she potentially may have cancer, which will be life threatening. If that is the case, the patient is DNR/DNI. We will continue her DNR/DNI status. Sarwat Ann MD
--- NOTE | 2017-03-15 11:08 | CP.PCM.CON ---
History of Present Illness - History of Present Illness History of Present Illness: 87 year old female with PMH of HTN was initially admitted in [facility] because of generalized weakness and anorexia. She is now found to have a left breast mass, lung mass and extensive mediastinal lymphadenopathy. Septic work up was negative although she was thought to have UTI. She is now transferred to [facility] for continued medical therapy and physical rehab. Infectious Diseases consult is requested to further evaluate and manage. Currently she is comfortable on a chair, not in distress, no fevers, no abdominal pain, no chest pain, no SOB, still has some weakness, no diarrhea, no dysuria. Review of Systems - Review of Systems All systems: reviewed and no additional remarkable complaints except (as per HPI ) Past Patient History - Past Social History Smoking Status: Never Smoked - CARDIAC Hx Cardiac Disorders: Yes Hx Hypertension: Yes - PULMONARY Hx Respiratory Disorders: Yes Hx Bronchitis: Yes Hx Pneumonia: Yes - NEUROLOGICAL Hx Neurological Disorder: No - HEENT Hx HEENT Problems: Yes Other/Comment: ectropion - RENAL Hx Chronic Kidney Disease: No - ENDOCRINE/METABOLIC Hx Endocrine Disorders: No Other/Comment: impaired fasting glucose - HEMATOLOGICAL/ONCOLOGICAL Hx Blood Disorders: No - INTEGUMENTARY Hx Dermatological Problems: No - MUSCULOSKELETAL/RHEUMATOLOGICAL Hx Falls: Yes - GASTROINTESTINAL Hx Gastrointestinal Disorders: No - GENITOURINARY/GYNECOLOGICAL Hx Reproductive Disorders: No - PSYCHIATRIC Hx Psychophysiologic Disorder: No - SURGICAL HISTORY Hx Surgeries: No - ANESTHESIA Hx Anesthesia: No Meds Allergies/Adverse Reactions: Allergies Allergy/AdvReac Type Severity Reaction Status Date / Time No Known Allergies Allergy Verified 03/14/17 19:01 - Medications Medications: Current Medications Albuterol/Ipratropium (Duoneb 3 Mg/0.5 Mg (3 Ml) Ud) 3 ml IH Q4H PRN; Protocol PRN Reason: Shortness of Breath Amlodipine Besylate (Norvasc) 10 mg PO DAILY [facility] PRN Reason: Protocol Hydrochlorothiazide (Hydrodiuril) 25 mg PO DAILY [facility] PRN Reason: Protocol Lisinopril (Zestril) 20 mg PO DAILY [facility] PRN Reason: Protocol Physical Exam - Constitutional Appears: Non-toxic, No Acute Distress - Head Exam Head Exam: NORMAL INSPECTION - ENT Exam ENT Exam: Mucous Membranes Moist - Neck Exam Neck exam: Negative for: Meningismus - Respiratory Exam Respiratory Exam: Decreased Breath Sounds - Cardiovascular Exam Cardiovascular Exam: +S1, +S2 - GI/Abdominal Exam GI & Abdominal Exam: Soft. absent: Tenderness Results - Vital Signs Recent Vital Signs: Last Vital Signs Temp 97.8 F 03/14/17 19:37 Pulse 86 03/14/17 19:37 Resp 17 03/14/17 19:37 BP 149/78 03/14/17 19:37 Pulse Ox Assessment & Plan - Assessment and Plan (Free Text) Plan: Assessment Systemic Inflammatory Response Syndrome, with leukocytosis probably related to probable malignancy with right lower lobe lung mass, left breast mass and extensive mediastinal lymphadenopathy; no evidence of sepsis identified HTN Plan Reviewed septic work up - urinalysis showed leukocyte esterase but negative urine cx, making UTI unlikely (and patient does not currently have symptoms); blood cx are negative reviewed CT chest follow up flow cytometry will need further Heme/Onc work up will continue to monitor clinically off antibiotics since she is at risk for nosocomial infections
--- NOTE | 2017-03-15 15:47 | PN ---
PULMONARY NOTE DATE: 03/15/2017 SUBJECTIVE: The patient appears comfortable this morning. She is mildly short of breath, but in no acute distress. PHYSICAL EXAMINATION: VITAL SIGNS: Temperature is 97.9, pulse 82, respirations 20/22, blood pressure 135/68. Oxygen saturation on nasal cannula ranges from 91-98%. HEENT: Normocephalic, atraumatic. No JVD. CARDIOVASCULAR: Systolic ejection murmur at the lower left sternal border. No S3 gallop. LUNGS: Decreased breath sounds at the bases. Minimal rhonchi. No wheezing. EXTREMITIES: No clubbing, cyanosis or edema. Calves are nontender to palpation. GI: Abdomen is soft, nontender and nondistended. Bowel sounds are positive. SKIN: No acute rash. NEUROLOGIC: Exam limited at the present time. IMPRESSION 1. Mediastinal mass. 2. Progressive weakness, status post fall. 3. Hypertension. 4. Persistent leukocytosis. 5. Mild bronchospasm. PLAN: The patient appears comfortable this morning. She is mildly short of breath at rest, but certainly in no acute distress. On physical exam, there is minimal bronchospasm noted today. I will start Xopenex nebulizer treatments. I will also order aspiration precautions. The patient remains with a leukocytosis. Repeat urine cultures have been ordered. Dr. Riojas (infectious disease) is on the case. As stated in yesterday's assessment, the patient/family wish no further workup (or biopsies) - concerning the mediastinal mass. The patient is now on the transitional uni,t where she will participate with physical therapy. I will discuss the above with Dr. Ann. Vishal Jackson MD MTDShawna
[2017-03-16] MEDS: Levalbuterol 0.63 MG/3 ML Inhal Soln UD IH SCH ×3 (08:14→22:30)
--- NOTE | 2017-03-16 16:30 | PN ---
DATE: 03/16/2017 SUBJECTIVE: The patient is in bed, was seen earlier today in 318. No fevers and no chills. PHYSICAL EXAMINATION VITAL SIGNS: Temperature is 97, blood pressure is 91/50, respiratory rate of 16. HEENT: Unremarkable. NECK: Supple. LUNGS: Decreased breath sounds. HEART: Normal S1 and S2. ABDOMEN: Soft and nontender. LABORATORY EXAMINATION: Noted. Microbiology is reviewed. Blood cultures from acute care are no growth. ASSESSMENT AND PLAN: This is an 87-year-old female with past medical history of hypertension who was admitted to the [facility] because of generalized weakness; anorexia; a left breast mass; lung mass; extensive mediastinal adenopathy; septic workup negative with systemic inflammatory response syndrome; leukocytosis, probably related to the malignancy of right lower lobe lung mass and left breast; extensive mediastinal lymphadenopathy; and hypertension. Currently, the patient is off of antibiotics, afebrile. Cultures negative. REVIEW OF ORDERS: Confirms the patient to be off of antibiotics. The patient is at risk for developing nosocomial infection. Brian Riojas MD
[2017-03-16 17:54] LABS: PH,URINE 5.5 (4.7-8.0); URINE APPEARANCE CLEAR (CLEAR); URINE BILIRUBIN SMALL (NEGATIVE); URINE BLOOD SMALL (NEGATIVE); URINE COLOR YELLOW (YELLOW); URINE GLUCOSE (UA) NEGATIVE (NEGATIVE); URINE KETONE NEGATIVE (NEGATIVE); URINE LEUKOCYTE ESTERASE NEGATIVE Leu/uL (NEGATIVE); URINE PROTEIN NEGATIVE mg/dL (<30 mg/dL)
[2017-03-16 17:59] LABS: URINE WBC 0 - 2 /hpf (0-6)
--- NOTE | 2017-03-16 21:04 | CON ---
HOSPITAL CONSULT ON TCU DATE: 03/16/2017 [facility] consult on TCU. For Dr. House. CHIEF COMPLAINT: CLL. HISTORY OF PRESENT ILLNESS: The patient is an 87-year-old female admitted via the emergency room for generalized weakness, anorexia, found to have a left breast mass, lung mass with extensive mediastinal adenopathy with the patient having hematuria, now transferred to TCU as per Dr. Ann covering for Dr. Rose, her primary doctor. With this, the patient is resting comfortably in a chair, wants to be ambulated; however, no assistance was available. The patient is having mild dementia noted. She also reports dizziness with a possible fall at home. At present, she had testing done by Dr. Ann, which included flow cytometric analysis, which showed findings consistent with chronic lymphocytic leukemia with the patient known to have an elevated white blood cell count. She reports she has a niece who assists her with no other family members available. ALLERGIES: NO KNOWN ALLERGIES. MEDICATIONS: The patient's medicines on admission included Norvasc and lisinopril. PAST MEDICAL HISTORY: As above. FAMILY HISTORY: Noncontributory. SOCIAL HISTORY: Noncontributory except her niece assists her with care. There is also questionable history of exposure to bedbugs?. She is DNR DNI as per Dr. Ann. Nonsmoker. Non-ethanolic. REVIEW OF SYSTEMS: Twelve-point review of systems was done, which was negative except as for items in the history of present illness. OBJECTIVE/PHYSICAL EXAMINATION: VITAL SIGNS: Temperature 97.5, pulse 85, respirations 20, blood pressure 91/55, and pulse oximetry 96%. HEENT: Unremarkable with mild protopsis questionable. NECK: Supple. HEART: Regular rate. Occasional ectopic beat. LUNGS: Clear. ABDOMEN: Soft, obese, and nontender. EXTREMITIES: Edema +1. NEUROLOGIC: Awake and alert, but confused. SKIN: Warm, dry, and clear except for significant seborrheic keratotic changes scattered on her chest, abdomen, and back. BREAST: Exam was done with approximately 4 cm nontender, firm mass appreciated in the left breast with left minimal axillary node positive findings. LABORATORY DATA: The patient's labs were done while on the medical floor to include a white blood cell count of 18.7 done two days prior, hemoglobin of 12.2, hematocrit of 37.2, and platelet count of 291,000 with a chem metabolic panel done two days prior within normal range except for BUN of 28. Her INR was 1.02 with a D-dimer of 4.8 five days prior. Urinalysis was done two days prior showing moderate amount of blood with the flow cytometric analysis as reported as above. Her other testing including a CT scan of the chest done on 03/11/2017, which was read as no definite pulmonary embolus identified, restrained motion is related to large amount of volume distributed. Extensive mediastinal lymphadenopathy identified as well as moderate lymphadenopathy of left pectoris and axillary regions, may assist with seeing the left breast as well. Further clinical correlation was advised, limited bilateral pleural effusion, greater right than left with pleural mass suggesting right lower lobe posterior inferior as well as possible left pleural space. Anteromedial right chest wall mass is seen 6.2 and 3.1 cm at the right fifth intercostal space. The patient had a head CT scan of her head done five days prior with her CT of the chest showed no acute intracranial hemorrhage, moderate to significant chronic white matter basal nuclei ischemic changes, and moderate volume loss. A chest x-ray was done 03/11/2017, it was read as prominent upper mediastinal and soft tissue suggesting suspicious lymphadenopathy, limited patchy infiltrate, questionable right base small pleural effusion, mid right pleural effusion seen with elevated hemidiaphragm. 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 PLAN: For this patient after conversation with Dr. House is to ask for a [id number] test for her CLL, also we will order tumor markers for breast along with mammogram ultrasound with consideration for a biopsy of the axillary lymph nodes as this is less invasive for tissue diagnosis with further workup for her urinalysis for her positive hematuria with workup in this vein as indicated, as per Dr. Ann. After exam with the patient, Dr. Preston covering for Dr. Ann reports that the patient had an episode with possible absence phenomenon in which she rolled her eyes and was momentarily unaware of her surroundings. For this time, we will ask for a neurologic consult with Dr. Fuentes as per Dr. Preston and Dr. Ann for evaluation of this patient. We will monitor clinically and with labs. Prognosis for this patient guarded with the niece possibly to make decisions regarding the patient's further care as indicated. Jorge Moser MD
[2017-03-17 07:58] LABS: BASO # 0.03 K/mm3 (0.0-2.0); BASO % 0.2 % (0.0-3.0); EOS # 0.2 (0.0-0.7); EOS % 0.9 % (1.5-5.0); GRAN # 9.54 (1.4-6.5); HEMATOCRIT 37.6 % (36.0-48.0); LYMPH # 6.7 (1.2-3.4); LYMPH % 37.3 % (22.0-35.0); MEAN CELL VOLUME 85.1 fl (80.0-105.0); MEAN CORPUSCULAR HEMOGLOBIN 28.1 pg (25.0-35.0); MEAN PLATELET VOLUME 10.8 fl (7.0-11.0); MONO # 1.5 (0.1-0.6); MONO % 8.6 % (1.0-6.0); RED CELL DISTRIBUTION WIDTH 15.2 % (11.5-14.5)
[2017-03-17 08:06] LABS: ALB/GLOB RATIO 1.2 (1.1-1.8); ALKALINE PHOSPHATASE 108 U/L (38-126); ALT/SGPT 54 U/L (7-56); AST/SGOT 42 U/L (14-36); BILIRUBIN,TOTAL 0.7 mg/dL (0.2-1.3); BLOOD UREA NITROGEN 28 mg/dL (7-21); CALCIUM 9.1 mg/dL (8.4-10.5); CARBON DIOXIDE 29 mmol/L (21-33); CHLORIDE 90 mmol/L (98-107); GFR AFRICAN-AMERICAN > 60; GLUCOSE,RANDOM 107 mg/dL (70-110); POTASSIUM 4.1 mmol/L (3.6-5.0); SODIUM 130 mmol/L (132-148); TOTAL PROTEIN 6.5 g/dL (5.8-8.3)
[2017-03-17] MEDS: Levalbuterol 0.63 MG/3 ML Inhal Soln UD IH SCH ×3 (08:33→22:04)
--- NOTE | 2017-03-17 08:56 | PN ---
DATE: 03/17/2017 PULMONARY PROGRESS NOTE SUBJECTIVE: The patient appears comfortable this morning. She is not short of breath at rest. PHYSICAL EXAMINATION: VITAL SIGNS: Temperature is 98.0, pulse is 78, respirations are 18/20, and blood pressure is 146/78. Oxygen saturation on nasal cannula is 97%. HEENT: Normocephalic and atraumatic. NECK: No JVD. CARDIOVASCULAR: Systolic ejection murmur at the lower left sternal border. No S3 gallop. LUNGS: Decreased breath sounds at the bases. Less rhonchi. No wheezing. EXTREMITIES: No clubbing, cyanosis or edema. Calves are nontender to palpation. GASTROINTESTINAL: Abdomen is soft, nontender and nondistended. Bowel sounds are positive. SKIN: No acute rash. NEUROLOGIC: Exam is limited at the present time. IMPRESSION 1. Mediastinal mass. 2. Progressive weakness, status post fall. 3. Hypertension. 4. Persistent leukocytosis. 5. Mild bronchospasm. PLAN: The patient appears comfortable this morning. She is not short of breath at rest. She does state to feeling better overall. On physical exam, there is less bronchospasm noted. In addition, the oxygen saturation on nasal cannula is now 97%. I will continue the current nebulizer treatment and aspiration precautions for now. Inputs by Oncology and Infectious Diseases are noted. Clinical status of the patient is improved - compared to the initial presentation. Repeat a.m. labs are pending. However, again, the future status/prognosis for this elderly patient remains very guarded at best. All are aware. I will discuss the above with the attending physician. Vishal Jackson MD MTDD
--- NOTE | 2017-03-17 09:29 | PN ---
DATE: 03/17/2017 SUBJECTIVE: The patient is in bed, in no acute distress, nontoxic, was seen earlier today in room 318. She has an uneventful night. PHYSICAL EXAMINATION: VITAL SIGNS: Temperature is 98, blood pressure is 140/70, respiratory rate is 18. HEENT: Unremarkable. NECK: Supple. LUNGS: Decreased breath sounds. HEART: Normal S1 and S2. ABDOMEN: Soft, nontender. LABORATORY DATA: Reveals a white count of 18,000, hemoglobin of 12, platelets of 322. Chemistry reveals the BUN of 28, creatinine of 0.8. Urinalysis is noted. Microbiology reveals the urine cultures, no growth. Review of the medications reveals the patient is off of antibiotics. ASSESSMENT AND PLAN: This is an 87-year-old female with history of hypertension, admitted with weakness, anorexia and left breast mass; lung mass; extensive mediastinal adenopathy; and systemic inflammatory response syndrome; leukocytosis, most likely secondary to the malignancy with her right lower lobe lung mass and the left breast; extensive mediastinal lymphadenopathy and hypertension. Currently, off of antibiotics. The patient is at risk for developing nosocomial infections. This morning's white count is still 18,000, most likely from malignancy related. The patient is not appeared to be having any infectious at this time, but she is at risk for developing nosocomial infection. Brian Riojas MD
--- NOTE | 2017-03-17 16:34 | PN ---
DATE: 03/17/2017 This is the patient's hospital visit on the TCU floor. For Dr. House. SUBJECTIVE: The patient is an 87-year-old female with recently diagnosed CLL with breast mass on the left, suspicious for breast cancer, never hospitalized in her life, she reports, with possible mild dementia, is sitting at bedside with her niece who is her caregiver and phone number is [phone] for Cecy Lund, with the patient now reporting leg discomfort off and on with a headache, otherwise in no acute distress, participating with reconditioning on the TCU floor. PHYSICAL EXAMINATION: VITAL SIGNS: Temperature 98.2, pulse 76, respirations 20, blood pressure 92/57 and pulse oximetry 97%. HEENT: Tongue is moist and midline with mild protopsis? NECK: Supple. HEART: Regular rate. LUNGS: Clear. ABDOMEN: Obese, soft, nontender. EXTREMITIES: Faint +1 edema. NEUROLOGIC: Awake, alert and oriented. SKIN: Warm, dry and clear except for a numerous seborrheic keratotic changes over the neck, chest, abdomen and back. LABORATORY DATA: The patient's labs were done to include white blood cell count of 18.0, hemoglobin of 12.4, hematocrit of 37.6 with a platelet count of 322,000 with chem metabolic panel showing a sodium of 130, chloride of 90, BUN of 28, AST of 42. CEA value of 3.4 with other tumor markers pending. It should be noted the patient is on a cardiac diet which is salt restricted. We will add salt to the diet as the patient is 87 years old and requests salt and should also improve her electrolyte panel. ASSESSMENT: Leucocytosis secondary to known chronic lymphocytic leukemia, new breast mass, rule out breast cancer; hematuria; mental status change, dementia; dizziness; hypertension; leg pain; headache; deconditioning. 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 House's interpretation as multiple areas show lymphadenopathy. PLAN: For this patient after conversation with Dr. House is to wait for the ZAP-[id number] testing. We will ask for the neurologic consult as the patient did have a possible episode of absence phenomenon yesterday, witnessed by Dr. Preston with a mammogram and ultrasound to be done with further evaluation of her leg discomfort with possible vascular evaluation as per Dr. Ann. We will monitor clinically with labs. Jorge Moser MD
[2017-03-17] MEDS: POLYETHYLENE GLYCOL 3350 17 GM/Dose PACKET PO PRN (17:30)
[2017-03-18 07:15] LABS: BASO # 0.02 K/mm3 (0.0-2.0); BASO % 0.1 % (0.0-3.0); EOS # 0.2 (0.0-0.7); EOS % 1.1 % (1.5-5.0); GRAN # 8.99 (1.4-6.5); GRAN % 48.8 % (50.0-68.0); HEMATOCRIT 38.4 % (36.0-48.0); LYMPH # 7.7 (1.2-3.4); LYMPH % 41.9 % (22.0-35.0); MEAN CELL VOLUME 85.1 fl (80.0-105.0); MEAN CORPUSCULAR HEMOGLOBIN 27.9 pg (25.0-35.0); MEAN CORPUSCULAR HGB CONC 32.8 g/dl (31.0-37.0); MEAN PLATELET VOLUME 10.3 fl (7.0-11.0); MONO # 1.5 (0.1-0.6); MONO % 8.1 % (1.0-6.0); RED CELL DISTRIBUTION WIDTH 15.1 % (11.5-14.5); WHITE BLOOD COUNT 18.4 10^3/ul (4.5-11.0)
[2017-03-18] MEDS: Levalbuterol 0.63 MG/3 ML Inhal Soln UD IH SCH ×3 (07:29→22:00)
[2017-03-18 07:34] LABS: ALB/GLOB RATIO 1.1 (1.1-1.8); ALKALINE PHOSPHATASE 111 U/L (38-126); ALT/SGPT 63 U/L (7-56); AST/SGOT 54 U/L (14-36); BILIRUBIN,TOTAL 0.7 mg/dL (0.2-1.3); BLOOD UREA NITROGEN 28 mg/dL (7-21); CARBON DIOXIDE 27 mmol/L (21-33); CHLORIDE 91 mmol/L (98-107); GFR AFRICAN-AMERICAN > 60; GLUCOSE,RANDOM 99 mg/dL (70-110); POTASSIUM 4.6 mmol/L (3.6-5.0); SODIUM 128 mmol/L (132-148); TOTAL PROTEIN 6.5 g/dL (5.8-8.3)
--- NOTE | 2017-03-18 09:19 | CON ---
DATE: 03/17/2017 HISTORY OF PRESENT ILLNESS: This is an 87-year-old female with past medical history of hypertension and also complaining of generalized weakness. The patient was found to have left breast mass, lung mass, and anorexia and was complaining of headache off and on and niece at bedside called to evaluate the patient. PAST MEDICAL HISTORY: As above. High blood pressure, bronchitis, pneumonia. ALLERGIES: NO KNOWN DRUG ALLERGIES. PHYSICAL EXAMINATION: HEENT: Normocephalic and atraumatic. NECK: Supple. NEUROLOGIC: Awake, alert, oriented x3. No aphasia. Cranial nerves II through XII are tested. Pupils are reactive. EOM intact. Visual field full. No facial asymmetry. Tongue midline. Motor examination, moves all extremities equally. Tone normal. Deep tendon reflexes 1+ both. Plantars are downgoing. Sensory appears intact. Cerebellar, gait deferred. IMPRESSION AND RECOMMENDATIONS: Headache, possibly chronic tension headache. We gave her Fioricet round the clock and CAT scan was negative. No metastasis to the brain. Continue present management. We will follow up. Eder Fuentes MD
--- NOTE | 2017-03-18 09:21 | PN ---
DATE: 03/18/2017 SUBJECTIVE: The patient appears comfortable this morning. She is not short of breath at rest. PHYSICAL EXAMINATION: VITAL SIGNS: Temperature is 98.0, pulse 76, respirations 18/20, blood pressure 172/80. Oxygen saturation on nasal cannula is 96%. HEENT: Normocephalic, atraumatic. NECK: No JVD. CARDIOVASCULAR: Systolic ejection murmur at the lower left sternal border. No S3 gallop. LUNGS: Decreased breath sounds at the bases. Minimal/less rhonchi. No wheezing. EXTREMITIES: No clubbing, cyanosis, or edema. Calves are nontender to palpation. GI: Abdomen is soft, nontender, and nondistended. Bowel sounds are positive. SKIN: No acute rash. NEUROLOGIC: Exam limited at the present time. IMPRESSION: 1. Mediastinal mass. 2. Progressive weakness, status post fall. 3. Hypertension. 4. Persistent leukocytosis. 5. Mild bronchospasm. PLAN: The patient appears comfortable this morning. She is not short of breath at rest. She does state to feeling much better overall. On physical exam, only minimal bronchospasm is noted. In addition, the oxygen saturation on nasal cannula is 96-97%. I will continue the current nebulizer treatments for now. The patient is now off antibiotic therapy. Input by Dr. Riojas (Infectious Disease) is noted. Repeat a.m. labs are pending. Clinical status of the patient is certainly improved, compared to the initial presentation. However, again, the future status/prognosis for this very elderly patient, remains very guarded at best. I will discuss the above with the attending physician. Vishal Jackson MD MTDShawna
--- NOTE | 2017-03-18 10:04 | PN ---
DATE: 03/18/2017 SUBJECTIVE: The patient is not complaining of any chest pain or shortness of breath or headaches or dizziness. PHYSICAL EXAMINATION: VITAL SIGNS: Temperature is 98.2, pulse is 90, blood pressure is 120/72 and respirations 18. GENERAL: The patient is lying in bed, flat, comfortable. HEENT: No oral lesion. Anicteric sclerae. Moist mucosa. NECK: No JVD, adenopathy, or thyromegaly. CARDIOVASCULAR: S1 and S2, regular. No murmurs, rubs, or gallops. LUNGS: Clear to auscultation bilaterally. No wheeze, rales, or rhonchi. ABDOMEN: Bowel sounds are positive, soft, nontender and nondistended. EXTREMITIES: No cyanosis, clubbing or edema. LABORATORY DATA: Sodium is 128 and white count of 18.4. ASSESSMENT: 1. Chronic lymphocytic leukemia, new onset. 2. Hypertension. 3. Left lung nodular mass. 4. A 6.2 x 3.1 mass in the right fifth intercostal space. 5. Left breast mass. 6. Mediastinal adenopathy. 7. History of bedbugs. 8. Gait dysfunction. PLAN: The patient is currently comfortable. The urine cultures have been negative. The patient does not wish to get a biopsy. The patient is being followed by Dr. House for evaluation of the CLL. I wanted input about the possibility of the patient having B-cell lymphoma that may be more amenable to prognosis and treatment options. The patient is on amlodipine for hypertension and is on MiraLax for constipation and is on hydrochlorothiazide for hypertension. Sarwat Ann MD
--- NOTE | 2017-03-18 10:58 | CP.PCM.PN ---
<Haley Burrows - Last Filed: 03/18/17 13:06> Subjective - Date & Time of Evaluation Date of Evaluation: 03/18/17 Time of Evaluation: 10:53 - Subjective Subjective: Neurology Progress Note for Lam Bojorquez PGY2 Patient seen and examined at bedside. As per nursing, there were no acute overnight events. Patient states she feels well today. She denies headache, dizziness, vision changes, weakness, CP or SOB. She was noted to have L breast mass and is scheduled for mammogram today. Objective - Vital Signs/Intake and Output Vital Signs (last 24 hours): Temp Pulse Resp BP Pulse Ox 98 F 80 22 150/71 96 03/18/17 06:00 03/18/17 09:57 03/18/17 06:00 03/18/17 09:59 03/18/17 06:00 - Medications Medications: Current Medications Acetaminophen (Tylenol 325mg Tab) 650 mg PO Q4H PRN PRN Reason: Pain, Mild (1-3) Last Admin: 03/17/17 13:31 Dose: 650 mg Amlodipine Besylate (Norvasc) 10 mg PO DAILY KARINA PRN Reason: Protocol Last Admin: 03/18/17 09:59 Dose: 10 mg Docusate Sodium (Colace) 100 mg PO BID KARINA PRN Reason: Protocol Last Admin: 03/18/17 09:55 Dose: 100 mg Hydrochlorothiazide (Hydrodiuril) 25 mg PO DAILY KARINA PRN Reason: Protocol Last Admin: 03/18/17 09:56 Dose: 25 mg Levalbuterol HCl (Xopenex) 0.63 mg IH TIDRESP KARINA Last Admin: 03/18/17 07:29 Dose: 0.63 mg Levalbuterol HCl (Xopenex) 0.63 mg IH Q2 PRN PRN Reason: Shortness of Breath Lisinopril (Zestril) 20 mg PO DAILY KARINA PRN Reason: Protocol Last Admin: 03/18/17 09:57 Dose: 20 mg Polyethylene Glycol (Miralax) 17 gm PO DAILY PRN; Protocol PRN Reason: Constipation Last Admin: 03/17/17 17:30 Dose: 17 gm - Labs Labs: 03/18/17 06:45 03/18/17 06:45 - Constitutional Appears: No Acute Distress - Head Exam Head Exam: ATRAUMATIC, NORMAL INSPECTION, NORMOCEPHALIC - Eye Exam Eye Exam: Normal appearance, PERRL Pupil Exam: NORMAL ACCOMODATION, PERRL - ENT Exam ENT Exam: Mucous Membranes Moist - Neck Exam Neck Exam: Full ROM - Respiratory Exam Respiratory Exam: Clear to Ausculation Bilateral, NORMAL BREATHING PATTERN. absent: Rales, Rhonchi, Wheezes - Cardiovascular Exam Cardiovascular Exam: REGULAR RHYTHM, +S1, +S2. absent: Gallop, Rubs, Murmur - GI/Abdominal Exam GI & Abdominal Exam: Soft, Normal Bowel Sounds. absent: Rigid, Tenderness, Mass , Rebound - Extremities Exam Extremities Exam: Normal Inspection. absent: Calf Tenderness, Pedal Edema - Neurological Exam Neurological Exam: Alert, Awake, CN II-XII Intact, Normal Gait, Oriented x3 Neuro motor strength exam: Left Upper Extremity: 5, Right Upper Extremity: 5, Left Lower Extremity: 5, Right Lower Extremity: 5 - Psychiatric Exam Psychiatric exam: Normal Affect, Normal Mood - Skin Skin Exam: Dry, Intact, Normal Color, Warm Additional comments: multiple moles on back Assessment and Plan - Assessment and Plan (Free Text) Assessment: This is an 87Y F with PMH of HTN who was is complaining of headache and generalized weakness. Patient was found to have L breast mass and lung mass. She is currently being worked up by hematology. Headache is most likely secondary to chronic tension headache. Weakness has resolved. Head CT noted to be negative for acute pathology. Plan: - Continue Fiorecet - Continue physical therapy - Avoid acute drop in blood pressure - Continue adequate hydration Patient is stable at this time. She can follow up with Dr. Fuentes as outpatient. Thank you for this consultation. Please re-consult if needed. Case seen, discussed and reviewed with Dr. Fuentes. Lam Burrows PGY2 <Anthony Fuentes - Last Filed: 03/18/17 13:56> Objective - Vital Signs/Intake and Output Vital Signs (last 24 hours): Temp Pulse Resp BP Pulse Ox 98 F 80 22 150/71 96 03/18/17 06:00 03/18/17 09:57 03/18/17 06:00 03/18/17 09:59 03/18/17 06:00 - Medications Medications: Current Medications Acetaminophen (Tylenol 325mg Tab) 650 mg PO Q4H PRN PRN Reason: Pain, Mild (1-3) Last Admin: 03/17/17 13:31 Dose: 650 mg Amlodipine Besylate (Norvasc) 10 mg PO DAILY KARINA PRN Reason: Protocol Last Admin: 03/18/17 09:59 Dose: 10 mg Docusate Sodium (Colace) 100 mg PO BID KARINA PRN Reason: Protocol Last Admin: 03/18/17 09:55 Dose: 100 mg Hydrochlorothiazide (Hydrodiuril) 25 mg PO DAILY KARINA PRN Reason: Protocol Last Admin: 03/18/17 09:56 Dose: 25 mg Levalbuterol HCl (Xopenex) 0.63 mg IH TIDRESP KARINA Last Admin: 03/18/17 07:29 Dose: 0.63 mg Levalbuterol HCl (Xopenex) 0.63 mg IH Q2 PRN PRN Reason: Shortness of Breath Lisinopril (Zestril) 20 mg PO DAILY KARINA PRN Reason: Protocol Last Admin: 03/18/17 09:57 Dose: 20 mg Polyethylene Glycol (Miralax) 17 gm PO DAILY PRN; Protocol PRN Reason: Constipation Last Admin: 03/17/17 17:30 Dose: 17 gm - Labs Labs: 03/18/17 06:45 03/18/17 06:45 Attending/Attestation - Attestation I have personally seen and examined this patient.: Yes I have fully participated in the care of the patient.: Yes I have reviewed all pertinent clinical information, including history, physical exam and plan: Yes
--- NOTE | 2017-03-18 13:35 | CP.PCM.PN ---
Subjective - Date & Time of Evaluation Date of Evaluation: 03/18/17 Time of Evaluation: 11:40 - Subjective Subjective: Comfortable, not in distress, afebrile. Objective - Vital Signs/Intake and Output Vital Signs (last 24 hours): Temp Pulse Resp BP Pulse Ox 98 F 76 22 172/80 H 96 03/18/17 06:00 03/18/17 06:00 03/18/17 06:00 03/18/17 06:00 03/18/17 06:00 - Medications Medications: Current Medications Acetaminophen (Tylenol 325mg Tab) 650 mg PO Q4H PRN PRN Reason: Pain, Mild (1-3) Last Admin: 03/17/17 13:31 Dose: 650 mg Amlodipine Besylate (Norvasc) 10 mg PO DAILY KARINA PRN Reason: Protocol Last Admin: 03/17/17 09:19 Dose: Not Given Docusate Sodium (Colace) 100 mg PO BID KARINA PRN Reason: Protocol Last Admin: 03/17/17 17:28 Dose: 100 mg Hydrochlorothiazide (Hydrodiuril) 25 mg PO DAILY KARINA PRN Reason: Protocol Last Admin: 03/17/17 13:25 Dose: 25 mg Levalbuterol HCl (Xopenex) 0.63 mg IH TIDRESP KARINA Last Admin: 03/18/17 07:29 Dose: 0.63 mg Levalbuterol HCl (Xopenex) 0.63 mg IH Q2 PRN PRN Reason: Shortness of Breath Lisinopril (Zestril) 20 mg PO DAILY KARINA PRN Reason: Protocol Last Admin: 03/17/17 09:19 Dose: Not Given Polyethylene Glycol (Miralax) 17 gm PO DAILY PRN; Protocol PRN Reason: Constipation Last Admin: 03/17/17 17:30 Dose: 17 gm - Labs Labs: 03/18/17 06:45 03/18/17 06:45 - Constitutional Appears: Non-toxic, No Acute Distress - Head Exam Head Exam: NORMAL INSPECTION - ENT Exam ENT Exam: Mucous Membranes Moist - Neck Exam Neck Exam: absent: Meningismus - Respiratory Exam Respiratory Exam: Decreased Breath Sounds - Cardiovascular Exam Cardiovascular Exam: +S1, +S2 - GI/Abdominal Exam GI & Abdominal Exam: Soft. absent: Tenderness Assessment and Plan - Assessment and Plan (Free Text) Plan: Assessment Systemic Inflammatory Response Syndrome, with leukocytosis probably related to probable malignancy with right lower lobe lung mass, left breast mass and extensive mediastinal lymphadenopathy; no evidence of sepsis identified HTN Plan Reviewed septic work up - urinalysis showed leukocyte esterase but negative urine cx, making UTI unlikely (and patient does not currently have symptoms); blood cx are negative reviewed CT chest follow up further Heme/Onc work up will continue to monitor clinically off antibiotics since she is at risk for hospital-acquired infections
[2017-03-19] MEDS: Levalbuterol 0.63 MG/3 ML Inhal Soln UD IH SCH ×3 (07:54→20:14)
--- NOTE | 2017-03-19 08:34 | PN ---
PULMONARY NOTE DATE: 03/19/2017 SUBJECTIVE: The patient appears comfortable this morning. She is not short of breath at rest. PHYSICAL EXAMINATION: VITAL SIGNS: Temperature is 97.6, pulse 74, respirations 20, blood pressure 140/66. Oxygen saturation on nasal cannula is 97%. HEENT: Normocephalic, atraumatic. No JVD. CARDIOVASCULAR: Systolic ejection murmur at the lower left sternal border. No S3 gallop. LUNGS: Decreased breath sounds at the bases. Less rhonchi. No wheezing. EXTREMITIES: No clubbing, cyanosis or edema. Calves are nontender to palpation. GI: Abdomen is soft, nontender and nondistended. Bowel sounds are positive. SKIN: No acute rash. NEUROLOGIC: Exam limited at the present time. IMPRESSION: 1. Mediastinal mass. 2. Progressive weakness, status post fall. 3. Hypertension. 4. Persistent leukocytosis. 5. Mild bronchospasm. PLAN: The patient appears comfortable this morning. She is not short of breath at rest. She does state to feeling much better overall. On physical exam, there is only mild bronchospasm noted. In addition, the oxygen saturation on nasal cannula is now 97-98%. I will continue the current nebulizer treatments for now. The patient remains off antibiotic therapy. Hematology evaluation is noted. Clinical status of the patient is certainly improved - compared to the initial presentation. However, again, the future status/prognosis for this elderly patient, does remain very guarded. All are aware. I will discuss the above with Dr. Ann. Vishal Jackson MD IN[place]
[2017-03-19] MEDS: POLYETHYLENE GLYCOL 3350 17 GM/Dose PACKET PO PRN (10:02)
--- NOTE | 2017-03-19 13:06 | PN ---
PULMONARY PROGRESS NOTE: DATE: 03/16/2017 SUBJECTIVE: The patient was seen and examined on transitional care unit. She reports improvement in her shortness of breath. PHYSICAL EXAMINATION: VITAL SIGNS: Temperature is 98, pulse 82, respirations 20, blood pressure is 130/80, and oxygen saturation on nasal cannula is 92%. HEAD, EYES, EARS, NOSE, AND THROAT: Normocephalic and atraumatic. NECK: No JVD. CARDIOVASCULAR: S1 and S2. No S3. PULMONARY: Diminished breath sounds at both bases with few rhonchi. No wheezes. GASTROINTESTINAL: Soft and nontender. No organomegaly. EXTREMITIES: No clubbing, cyanosis, or edema. SKIN: No acute skin rash. NEUROLOGIC: No focal deficits. ASSESSMENT: 1. Mediastinal mass. 2. Progressive weakness, status post fall. 3. Hypertension. 4. Mild bronchospasm. PLAN: The patient appears comfortable. She states she has less shortness of breath. She appears not short of breath at rest. There are few scattered rhonchi. Persistent leukocytosis is being addressed by infectious disease it infrastructure consultant. Mediastinal mass as per yesterday's note. Lasha Enamorado MD
--- NOTE | 2017-03-19 16:07 | PN ---
DATE: 03/19/2017 SUBJECTIVE: The patient is in bed, in no acute distress, nontoxic. No fevers and no chills. PHYSICAL EXAMINATION: VITAL SIGNS: Temperature 98, blood pressure 112/70, and respiratory rate 16. HEENT: Unremarkable. NECK: Supple. LUNGS: Decreased breath sounds. HEART: Normal S1 and S2. ABDOMEN: Soft and nontender. LABORATORY DATA: Reveals the patient's white count is 18,400, hemoglobin of 12, and platelets of 290. BUN of 28 and creatinine of 0.7. Urinalysis is noted. Microbiology is noted. ASSESSMENT AND PLAN: This is an 87-year-old female with systemic inflammatory response syndrome with leukocytosis, probably related to the malignancy with a right lower lobe lung mass, left breast mass with extensive mediastinal adenopathy, and currently off of antibiotics, afebrile. The patient is at risk for developing nosocomial infections. Review of orders confirms the patient to be off of antibiotics. Dr. Jackson's progress note from today is reviewed and appreciated. Brian Riojas MD
[2017-03-20 05:55] LABS: HEMATOCRIT 34.9 % (36.0-48.0); MEAN CELL VOLUME 85.1 fl (80.0-105.0); MEAN CORPUSCULAR HEMOGLOBIN 27.8 pg (25.0-35.0); MEAN CORPUSCULAR HGB CONC 32.7 g/dl (31.0-37.0); MEAN PLATELET VOLUME 10.5 fl (7.0-11.0); RED CELL DISTRIBUTION WIDTH 15.3 % (11.5-14.5); WHITE BLOOD COUNT 17.2 10^3/ul (4.5-11.0)
[2017-03-20 06:23] LABS: ALB/GLOB RATIO 1.1 (1.1-1.8); ALKALINE PHOSPHATASE 113 U/L (38-126); ALT/SGPT 69 U/L (7-56); AST/SGOT 45 U/L (14-36); BILIRUBIN,TOTAL 0.8 mg/dL (0.2-1.3); BLOOD UREA NITROGEN 27 mg/dL (7-21); CARBON DIOXIDE 31 mmol/L (21-33); CHLORIDE 88 mmol/L (95-110); GFR AFRICAN-AMERICAN > 60; GLUCOSE,RANDOM 107 mg/dL (70-110); MAGNESIUM 2.1 mg/dL (1.7-2.2); POTASSIUM 4.6 mmol/L (3.6-5.0); SODIUM 127 mmol/L (132-148); TOTAL PROTEIN 6.3 g/dL (5.8-8.3)
[2017-03-20] MEDS: Levalbuterol 0.63 MG/3 ML Inhal Soln UD IH SCH ×3 (07:31→20:18)
--- NOTE | 2017-03-20 07:37 | PN ---
SUBJECTIVE: The patient appears comfortable this morning. She is not short of breath at rest. PHYSICAL EXAMINATION VITAL SIGNS: Temperature is 97.5, pulse 80, respirations 20, blood pressure 135/65. Oxygen saturation on nasal cannula is 97%. HEENT: Normocephalic, atraumatic. NECK: No JVD. CARDIOVASCULAR: Systolic ejection murmur at the lower left sternal border. No S3 gallop. LUNGS: Decreased breath sounds at the bases. Minimal rhonchi. No wheezing. EXTREMITIES: No clubbing, cyanosis or edema. Calves are nontender to palpation. GASTROINTESTINAL: Abdomen is soft, nontender and nondistended. Bowel sounds are positive. SKIN: No acute rash. NEUROLOGIC: Limited at the present time. IMPRESSION: 1. Mediastinal mass. 2. Progressive weakness, status post fall. 3. Hypertension. 4. Persistent leukocytosis. 5. Mild bronchospasm. PLAN: The patient appears comfortable this morning. She is not short of breath at rest. She states she is feeling much better overall. On physical exam, there is less bronchospasm noted. In addition, the oxygen saturation on nasal cannula is now 97%. I will continue with the current nebulizer treatments for now. The patient remains off antibiotic therapy. Inputs by Infectious Disease and Oncology are noted. Repeat a.m. labs are pending. Clinical status of the patient is certainly improved-compared to the initial presentation. However, again, the overall status/prognosis, for this elderly patient, remains poor. All are aware. I will discuss the above with the attending physician. Vishal Jackson MD MTDShawna
--- NOTE | 2017-03-20 11:24 | PN ---
DATE: 03/20/2017 SUBJECTIVE: The patient has no complaints of any chest pain. No shortness of breath. No headaches or dizziness. PHYSICAL EXAMINATION: VITAL SIGNS: Temperature is 97.5, pulse is 80, blood pressure is 135/65, and respirations 24. GENERAL: The patient is lying in bed, flat, comfortable. HEENT: No oral lesion. Anicteric sclerae. Moist mucosa. NECK: No JVD, adenopathy, or thyromegaly. CARDIOVASCULAR: S1 and S2, regular. No murmurs, rubs, or gallops. LUNGS: Clear to auscultation bilaterally. No wheeze, rales, or rhonchi. ABDOMEN: Bowel sounds are positive, soft, nontender, and nondistended. EXTREMITIES: No cyanosis, clubbing, or edema. LABORATORY DATA: White count is 17.2, hemoglobin is 11.4. Creatinine is 0.7. ASSESSMENT: 1. Chronic lymphocytic leukemia. 2. Hyponatremia. 3. Hypertension. 4. Left lung nodule. 5. A 6.2 x 3.1 cm mass in the right fifth intercostal space. 6. Left breast mass. 7. Mediastinal adenopathy. 8. Gait dysfunction. 9. History of bedbugs. PLAN: The patient is currently comfortable, is on MiraLax for constipation. She is going to continue with amlodipine for hypertension, is on Colace. The patient is on Zestril for her hypertension. I will decrease the patient's blood pressure medications as the patient's blood pressure has been good. I have ordered urine for osmolarity and spot sodium. The patient will most likely need subacute rehab. I spoke to the staff about referring the patient for subacute rehab. Sarwat Ann MD
--- NOTE | 2017-03-20 11:34 | CP.PCM.PN ---
Subjective - Date & Time of Evaluation Date of Evaluation: 03/20/17 Time of Evaluation: 11:28 - Subjective Subjective: Heme/Onc progress note for Dr. House's service Patient seen and examined at bedside this morning. No acute overnight events or new complaints reported. She reported difficulty sleeping and as a result feeling tired this morning. Otherwise, no other complaints reported. Denied chest pain, palpitations, SOB. Objective - Vital Signs/Intake and Output Vital Signs (last 24 hours): Temp Pulse Resp BP Pulse Ox 97.5 F L 78 24 124/65 97 03/20/17 06:00 03/20/17 10:10 03/20/17 06:00 03/20/17 10:10 03/20/17 06:00 - Medications Medications: Current Medications Acetaminophen (Tylenol 325mg Tab) 650 mg PO Q4H PRN PRN Reason: Pain, Mild (1-3) Last Admin: 03/17/17 13:31 Dose: 650 mg Amlodipine Besylate (Norvasc) 10 mg PO DAILY KARINA PRN Reason: Protocol Last Admin: 03/20/17 10:09 Dose: 10 mg Docusate Sodium (Colace) 100 mg PO BID KARINA PRN Reason: Protocol Last Admin: 03/20/17 10:09 Dose: 100 mg Levalbuterol HCl (Xopenex) 0.63 mg IH TIDRESP [facility] Last Admin: 03/20/17 07:31 Dose: 0.63 mg Levalbuterol HCl (Xopenex) 0.63 mg IH Q2 PRN PRN Reason: Shortness of Breath Lisinopril (Zestril) 10 mg PO DAILY [facility] Last Admin: 03/20/17 10:10 Dose: 10 mg Polyethylene Glycol (Miralax) 17 gm PO DAILY PRN; Protocol PRN Reason: Constipation Last Admin: 03/19/17 10:02 Dose: 17 gm - Labs Labs: 03/20/17 05:15 03/20/17 05:15 - Constitutional Appears: No Acute Distress - Head Exam Head Exam: ATRAUMATIC, NORMAL INSPECTION, NORMOCEPHALIC - Eye Exam Eye Exam: EOMI, PERRL - ENT Exam ENT Exam: Mucous Membranes Moist - Respiratory Exam Respiratory Exam: Decreased Breath Sounds. absent: Rales, Rhonchi, Wheezes - Cardiovascular Exam Cardiovascular Exam: +S1, +S2. absent: Clicks, Gallop, Rubs - GI/Abdominal Exam GI & Abdominal Exam: Soft. absent: Distended, Firm, Guarding, Rigid, Tenderness , Rebound - Extremities Exam Extremities Exam: Normal Inspection. absent: Pedal Edema - Neurological Exam Neurological Exam: Alert, Awake, Oriented x3 - Psychiatric Exam Psychiatric exam: Normal Affect, Normal Mood - Skin Skin Exam: Dry, Intact, Normal Color, Warm Assessment and Plan - Assessment and Plan (Free Text) Plan: 87yo female with history of hypertension admitted for decrease appetite and weakness. Oncology consulted for further evaluation of new onset CLL 1. CLL 2. Breast mass concerning for malignancy 3. Hypertension 4. Hyponatremia 5. Deconditioning -Flow cytometry was reviewed which was consistent with chronic lymphocytic leukemia -ZAP-70 testing on flow cytometry equivocal -Breast Ultrasound reviewed which revealed an extensive irregular hypoechoic mass measuring roughly 4.6 x 3.5 x 4.4 cm in the left upper outer quadrant. Findings highly suspicious for malignancy. -IR consulted for evaluation of potential biopsy of breast mass; scheduled for biopsy at 10am tomorrow -Further recommendations as per Dr. House Patient seen and case discussed with attending, Dr. House
[2017-03-20 16:30] VITALS: O2SAT 99
[2017-03-20 16:50] VITALS: RESP 14; TEMP 97.8
--- NOTE | 2017-03-20 23:22 | PN ---
DATE: SUBJECTIVE: The patient seen in room 318. The patient seen in bed, but seen early this morning in no acute distress, nontoxic. PHYSICAL EXAMINATION: VITAL SIGNS: Temperature is 98, blood pressure is 120/70 and respiratory rate of 16. HEENT: Unremarkable. NECK: Supple. LUNGS: Has decreased breath sounds. HEART: Normal S1 and S2. ABDOMEN: Soft. LABORATORY EXAMINATION: Reveals the patient's white count of 17,000 and hemoglobin of 11. Chemistry reveals a BUN of 27, creatinine 0.7. Carcinoembryonic antigen is noted. ASSESSMENT AND PLAN: An 87-year-old female with systemic inflammatory response syndrome with leukocytosis, probably related to malignancy and right lower lobe lung mass, left breast mass, extensive mediastinal adenopathy. Off of antibiotics. The patient is at risk for developing nosocomial infections. We will follow closely with you. The patient is seen early this morning in transitional care. Brian Riojas MD
[2017-03-21] MEDS: POLYETHYLENE GLYCOL 3350 17 GM/Dose PACKET PO PRN (03:33)
[2017-03-21 07:08] LABS: BASO # 0.01 K/mm3 (0.0-2.0); EOS # 0.1 (0.0-0.7); EOS % 0.3 % (1.5-5.0); GRAN # 12.11 (1.4-6.5); GRAN % 57.3 % (50.0-68.0); HEMATOCRIT 36.2 % (36.0-48.0); LYMPH # 7.7 (1.2-3.4); LYMPH % 36.3 % (22.0-35.0); MEAN CELL VOLUME 84.2 fl (80.0-105.0); MEAN CORPUSCULAR HEMOGLOBIN 28.1 pg (25.0-35.0); MEAN CORPUSCULAR HGB CONC 33.4 g/dl (31.0-37.0); MEAN PLATELET VOLUME 10.5 fl (7.0-11.0); MONO # 1.3 (0.1-0.6); MONO % 6.1 % (1.0-6.0); RED CELL DISTRIBUTION WIDTH 15.3 % (11.5-14.5); WHITE BLOOD COUNT 21.2 10^3/ul (4.5-11.0)
[2017-03-21] MEDS: Levalbuterol 0.63 MG/3 ML Inhal Soln UD IH SCH (07:16)
[2017-03-21 07:19] LABS: ALB/GLOB RATIO 1.1 (1.1-1.8); ALKALINE PHOSPHATASE 112 U/L (38-126); ALT/SGPT 66 U/L (7-56); AST/SGOT 47 U/L (14-36); BILIRUBIN,TOTAL 0.7 mg/dL (0.2-1.3); BLOOD UREA NITROGEN 27 mg/dL (7-21); CARBON DIOXIDE 27 mmol/L (21-33); CHLORIDE 89 mmol/L (98-107); GFR AFRICAN-AMERICAN > 60; GLUCOSE,RANDOM 120 mg/dL (70-110); SODIUM 127 mmol/L (132-148); TOTAL PROTEIN 6.4 g/dL (5.8-8.3)
--- NOTE | 2017-03-21 08:09 | PN ---
SUBJECTIVE: The patient appears comfortable this morning. She is not short of breath at rest. PHYSICAL EXAMINATION VITAL SIGNS: Temperature 97.8, pulse is 77, respirations 18, and last blood pressure recorded 97/67. Oxygen saturation on nasal cannula is 99%. HEENT: Normocephalic, atraumatic. NECK: No JVD. CARDIOVASCULAR: Systolic ejection murmur at the lower left sternal border. No S3 gallop. LUNGS: Decreased breath sounds at the bases. Less rhonchi. No wheezing. EXTREMITIES: No clubbing, cyanosis, or edema. Calves are nontender to palpation. GASTROINTESTINAL: Abdomen is soft, nontender, nondistended. Bowel sounds are positive. SKIN: No acute rash. NEUROLOGIC: Limited at the present time. IMPRESSION: 1. Mediastinal mass. 2. Progressive weakness, status post fall. 3. Hypertension. 4. Persistent leukocytosis. 5. Mild bronchospasm. PLAN: The patient appears comfortable this morning. She is not short of breath at rest. She is still somewhat dyspneic on exertion. She states she is feeling much better overall. On physical exam, her bronchospasm is now minimal. In addition, the oxygen saturation on nasal cannula is 99%. I will continue with the current nebulizer treatments and aspiration precautions for now. Inputs by Infectious Disease and Oncology are noted. Clinical status of the patient is certainly improved-compared to the initial presentation. However, again, the future status/prognosis for this patient remains poor. All are aware. I will discuss the above with the attending physician. Vishal Jackson MD MTDD
[2017-03-21 09:14] VITALS: BP 114/58; PULSE 101
--- NOTE | 2017-03-21 17:07 | PN ---
DATE: 03/21/2017 SUBJECTIVE: The patient seen earlier today in 318. The patient has no fever, no chills. PHYSICAL EXAMINATION: VITAL SIGNS: Temperature is 98, blood pressure is 110/50, respiratory rate of 18. HEENT: Unremarkable. NECK: Supple. LUNGS: Decreased breath sounds. HEART: Normal S1 and S2. ABDOMEN: Soft and nontender. LABORATORY EXAMINATION: Reveals a white count of 21,000 and hemoglobin of 12. Chemistries are noted. Urine culture is negative. ASSESSMENT AND PLAN: An 87-year-old female seen early this morning with systemic inflammatory response syndrome, leukocytosis probably secondary to malignancy, right lower lung mass, left breast mass, extensive mediastinal adenopathy, currently off antibiotics, afebrile. The patient's case was discussed with Dr. Ann this morning, and we will follow with you. Brian Riojas MD
--- NOTE | 2017-03-21 17:17 | CP.PCM.PN ---
Subjective - Date & Time of Evaluation Date of Evaluation: 03/21/17 Time of Evaluation: 08:20 - Subjective Subjective: Heme/Onc progress note for Dr. House's service Patient seen and examined at bedside. No acute overnight events or new complaints reported. Patient scheduled for biopsy today by IR. Denies cp, palpitations, sob. Objective - Vital Signs/Intake and Output Vital Signs (last 24 hours): Temp Pulse Resp BP Pulse Ox 97.8 F 101 H 14 114/58 L 99 03/20/17 16:50 03/21/17 09:05 03/20/17 16:50 03/21/17 09:09 03/20/17 11:39 - Labs Labs: 03/21/17 06:15 03/21/17 06:15 - Constitutional Appears: No Acute Distress - Head Exam Head Exam: ATRAUMATIC, NORMAL INSPECTION, NORMOCEPHALIC - Eye Exam Eye Exam: EOMI, PERRL - ENT Exam ENT Exam: Mucous Membranes Moist - Neck Exam Neck Exam: Normal Inspection - Respiratory Exam Respiratory Exam: Decreased Breath Sounds. absent: Rales, Rhonchi, Wheezes - Cardiovascular Exam Cardiovascular Exam: +S1, +S2. absent: Gallop, Rubs, Murmur - GI/Abdominal Exam GI & Abdominal Exam: Soft. absent: Distended, Firm, Guarding, Rigid, Tenderness , Rebound - Neurological Exam Neurological Exam: Alert, Awake, Oriented x3 - Psychiatric Exam Psychiatric exam: Normal Affect, Normal Mood - Skin Skin Exam: Dry, Intact, Normal Color, Warm Assessment and Plan - Assessment and Plan (Free Text) Plan: 87yo female with history of hypertension admitted for decrease appetite and weakness. Oncology consulted for further evaluation of new onset CLL 1. CLL 2. Breast mass concerning for malignancy 3. Hypertension 4. Hyponatremia 5. Deconditioning -Flow cytometry was reviewed which was consistent with chronic lymphocytic leukemia -ZAP-70 testing on flow cytometry equivocal -Breast Ultrasound reviewed which revealed an extensive irregular hypoechoic mass measuring roughly 4.6 x 3.5 x 4.4 cm in the left upper outer quadrant. Findings highly suspicious for malignancy. -Case was discussed with IR and she is scheduled for biopsy today at 10am; pathology results to follow -Further recommendations as per Dr. House -Recommend patient to follow up as an outpatient with Dr. House upon discharge Patient seen and case discussed with attending, Dr. House
--- NOTE | 2017-03-22 08:13 | DS ---
SUBJECTIVE: The patient has no complaints of any chest pain. No shortness of breath. The patient was initially admitted to the transitional care unit for rehab. The patient is having no headaches or dizziness. No nausea. She is going for biopsy of her breast today. PHYSICAL EXAMINATION: VITAL SIGNS: Temperature is 97.8, pulse of 77, blood pressure is 135/62, and respirations 14. GENERAL: The patient is lying in bed, flat, comfortable. HEENT: No oral lesion. Anicteric sclerae. Moist mucosa. NECK: No JVD, adenopathy, or thyromegaly. CARDIOVASCULAR: S1 and S2, regular. No murmurs, rubs, or gallops. LUNGS: Clear to auscultation bilaterally. No wheeze, rales, or rhonchi. ABDOMEN: Bowel sounds are positive, soft, nontender and nondistended. EXTREMITIES: No cyanosis, clubbing or edema. ASSESSMENT: 1. Chronic lymphocytic leukemia. 2. Hyponatremia secondary to hydrochlorothiazide. 3. Hypertension. 4. Left lung nodule. 5. A 6.2 x 3.1 cm mass in the right fifth intercostal space. 6. Left breast mass. 7. Mediastinal adenopathy. 8. Gait dysfunction. 9. History of bedbugs. PLAN: The patient is currently comfortable. The patient's hyponatremia is present because of the hydrochlorothiazide that she was on, this has been discontinued. I have also adjusted her home medications, that she was taking hydrochlorothiazide at home. The patient is on Colace. She is going to continue with Norvasc for hypertension. She will continue on lisinopril for her hypertension as well. The patient is on Tylenol as needed. The patient was able to walk 100 feet. I had referred her to subacute rehab, but she does not qualify because of the amount of walking that she can do. She can walk 100 feet. I also did a physician to physician call with the insurance company, but she has been denied. She is going to go home with services. The patient's niece is unhappy according to the social work faculty member that the patient is going to be discharged. I did speak to Dr. 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 The patient has no headaches or dizziness. No nausea. Condition is stable. Activities increase as tolerated. FOLLOWUP: 1. Follow up with Dr. Rose in 1 to 2 weeks. 2. Follow up with Dr. House in 1 to 2 weeks. Sarwat Ann MD
== END 2017-03-21 10:19 | disposition home or self-care (01) | DRG 92 ==
LOC: TRCU 18:32
PROVIDERS: ADMIT Internal Medicine Nephrology; ATTEND Internal Medicine Nephrology
PROC: F07Z9FZ Gait Training/Functional Ambulation Treatment using Assistive, Adaptive, Supportive or Protective Equipment (ICD-10-PCS; principal; 2017-03-15)
PROC: F08Z4FZ Home Management Treatment using Assistive, Adaptive, Supportive or Protective Equipment (ICD-10-PCS; 2017-03-15)
PROC: 3E0F7GC Introduction of Other Therapeutic Substance into Respiratory Tract, Via Natural or Artificial Opening (ICD-10-PCS; 2017-03-15)
DX: R26.89 Other abnormalities of gait and mobility (principal); R53.1 Weakness; C91.10 Chronic lymphocytic leukemia of B-cell type not having achieved remission; F03.90 Unspecified dementia, unspecified severity, without behavioral disturbance, psychotic disturbance, mood disturbance, and anxiety; R59.0 Localized enlarged lymph nodes; N63.0 Unspecified lump in unspecified breast; R91.1 Solitary pulmonary nodule; E87.1 Hypo-osmolality and hyponatremia; R65.10 Systemic inflammatory response syndrome (SIRS) of non-infectious origin without acute organ dysfunction; T50.2X5A Adverse effect of carbonic-anhydrase inhibitors, benzothiadiazides and other diuretics, initial encounter; I10 Essential (primary) hypertension; G44.229 Chronic tension-type headache, not intractable; R91.8 Other nonspecific abnormal finding of lung field; Z66 Do not resuscitate; J98.01 Acute bronchospasm; R31.9 Hematuria, unspecified; R63.0 Anorexia